=== PATIENT | female | born 1960 | race Caucasian/White ===

== ENCOUNTER 2023-08-25 07:59 | Outpatient (AMB) | payer OTHER, SELFPAY ==
--- NOTE | 2023-08-25 08:20 | MHC.OFFVIS ---
Intake Vital Signs 08/25/23 08:23 Height 5 ft 6.5 in Weight 149 lb 14.629 oz BMI 23.8 BP 132/70 Blood Pressure Location Lt brachial Position Sitting Pulse 54 Pulse Source Pulse Oximeter Pulse Oximetry (%) 98 Oxygen Delivery Method Room Air Intake Visit Reasons: COPD Billing Manager Required: No Allergies sulfamethoxazole [From Bactrim] Allergy (Mild, Unverified 08/25/23 08:25) FLUSHING/FEVER trimethoprim [From Bactrim] Allergy (Mild, Unverified 08/25/23 08:25) FLUSHING/FEVER HPI HPI Comments History of Present Illness Details The patient is here for pulmonary evaluation. The patient is a 64 year woman with a known history of bicuspid valve ultimately underwent a cardiac catheterization back in December 2021 and required an aortic valve replacement. Prior to the surgery the patient was complaining of shortness of breath specially with activity going up a flight of stairs or 6 slight incline. It is felt that mainly due to the aortic valve. However, after the valve was fixed she continued to have ongoing symptoms of dyspnea. The patient was placed on Spiriva. She did undergo pulmonary function studies at [facility] which are personally reviewed with her. The patient appears to have mild to moderate obstruction consistent with COPD and also has evidence of air trapping in a moderate diffusion impairment. She has chronic anemia in addition to having her surgery for her aortic valve. All these are contributing to her symptoms of dyspnea. She does have some wheezing on examination will go ahead and optimize her respiratory medications at this time. The patient will also benefit from pulmonary rehabilitation. She is working at this time. Therefore she can looking into underlying pulmonary programs. The patient will stop Spiriva I will start Anoro. She will continue this until she is evaluated in several months. If the patient has any issues prior to the next visit she will call for an earlier assessment [facility] Medical History (Updated 08/25/23 @ 09:03 by Francisco Rojo MD) Dyspnea COPD (chronic obstructive pulmonary disease) Social History Patient Tobacco Use Status: Former Tobacco user Tobacco use type: Cigarette Years Smoked: 42 Years Review of Systems Const Denies fever(s) Eyes Reports no additional complaints ENT Denies nasal congestion Card Denies chest pain and Reports dyspnea on exertion Resp Reports dyspnea on exertion and Reports wheezing GI Reports no additional complaints Musc Reports no additional complaints Allan/Lymph Denies lymphadenopathy Aller/Immun Reports wheezing Physical Exam Vital Signs: Last Vital Signs Pulse 54 08/25/23 08:23 BP 132/70 08/25/23 08:23 Pulse Ox 98 08/25/23 08:23 Oxygen Delivery Method Room Air 08/25/23 08:23 BMI result Body Mass Index 23.8 Const General: comfortable HEENT Head: Yes normocephalic Neck Neck: Yes supple Chest Chest palpation & inspection: normal inspection of the chest Resp Effort & Inspection: normal respiratory effort and prolonged expiratory phase Auscultation: wheezes and diminished lung sounds Cardio Heart sounds: S1 normal heart sound present and S2 normal heart sound present GI Palpation (GI): Soft to palpation Skin General skin exam: no rashes or lesions noted Extrem General: Yes no clubbing, cyanosis or edema Immunizations pneumoc 20-monty conj-dip cr(PF) 0.5 mL IM syringe Performing Provider: Francisco Rojo MD Performing Location: [facility] Administered by: Drea Fleming LPN on 08/25/23 08:58 Dose Route Admin Location Dispensed Lot Number Expiration Date NDC Classification Case Manager 0.5 mL IM Left Deltoid 0.5 mL [id number] 03/23/24 [id number] [employer] VIS Given Date VIS Provided VIS Publication Date 08/25/23 Single Vaccine 21 Eligibility Eligibility Date Funding Source Not [facility] Eligible 08/25/23 Private Results Reviewed Results Reviewed: Personally reviewed her CT scan of the chest from [facility] demonstrating tune-ow-[place] emphysema in addition to that does have the post cardiac surgery changes. She does have some atelectasis at the base. Slight evidence of chronic bronchitis. Read as a rads 2. Assessment & Plan Assessment & Plan (1) COPD (chronic obstructive pulmonary disease): Comment: mild to moderate FEV1 75% predicted Code(s): J44.9 - Chronic obstructive pulmonary disease, unspecified Qualifiers: COPD type: emphysema Emphysema type: centrilobular Qualified Code(s): J43.2 - Centrilobular emphysema (2) Dyspnea: Comment: multifactorial Code(s): R06.00 - Dyspnea, unspecified Qualifiers: Dyspnea type: dyspnea on exertion Qualified Code(s): R06.09 - Other forms of dyspnea Plan stop Spiriva start Anoro JENNIFER as needed on line pulmonary rehab monitor [place] [facility] [place]4 [place] Orders: Orders Pneumococcal 20 Immunization Today Z23 - Encounter for immunization Medications: New umeclidinium-vilanterol 62.5-25 mcg/actuation (Anoro Ellipta) 1 inh inhalation DAILY 30 days 60 ea 11RF J44.89 - Other specified chronic obstructive pulmonary disease Coding Level of Care Code New Pt Level 4 (47433) Diagnoses Centrilobular emphysema J43.2 COPD type: emphysema Emphysema type: centrilobular Dyspnea on exertion R06.09 Dyspnea type: dyspnea on exertion Time Spent (min) 37
[2023-08-25 08:23] VITALS: BP 132/70; PULSE 54; O2SAT 98; BMI 23.8
== END 2023-08-25 08:58 | disposition home or self-care (01) ==
PROVIDERS: PCP Internal Medicine; Referring Provider Student in an Organized Health Care Education/Training Program; Visit Provider Hospitalist
DX: J43.2 Centrilobular emphysema (principal); R06.09 Other forms of dyspnea; Z23 Encounter for immunization
CPT/HCPCS: 99204

== ENCOUNTER → 2023-08-25 07:59 | Outpatient (BNVA) | payer OTHER, SELFPAY | PROVIDERS: PCP Internal Medicine; Referring Provider Student in an Organized Health Care Education/Training Program; Visit Provider Hospitalist | DX: J43.2 Centrilobular emphysema (principal); R06.09 Other forms of dyspnea; Z23 Encounter for immunization | CPT/HCPCS: 90471; 90677 ==

== ENCOUNTER 2023-12-21 09:28 | Outpatient (AMB) | payer OTHER, SELFPAY ==
[2023-12-21 09:31] VITALS: BP 130/68; PULSE 55; O2SAT 99; BMI 23.3
--- NOTE | 2023-12-21 09:31 | A.OFFVIS_ITS ---
Vital Signs 12/21/23 09:31 Height 5 ft 6.5 in Weight 146 lb 9.718 oz BMI 23.3 BP 130/68 Blood Pressure Location Lt brachial Position Sitting Pulse 55 Pulse Source Pulse Oximeter Pulse Oximetry (%) 99 Oxygen Delivery Method Room Air Intake Visit Reasons: emphysema Brim Edge Trimmer Required: No Bottom Hoop Driver: Bottom Hoop Driver offered & declined Allergies sulfamethoxazole [From Bactrim] Allergy (Mild, Unverified 12/21/23 09:35) FLUSHING/FEVER trimethoprim [From Bactrim] Allergy (Mild, Unverified 12/21/23 09:35) FLUSHING/FEVER Medication List - Last Reconciled 12/21/23 by Zaynab Johnson LPN atorvastatin 80 mg PO DAILY cyanocobalamin (vitamin B-12) mcg IM metoprolol succinate ER 25 mg PO DAILY trazodone 50 mg PO BEDTIME umeclidinium-vilanterol 62.5-25 mcg/actuation (Anoro Ellipta) 1 inh inhalation DAILY 30 days HPI Comments Details: The patient is a 63 year woman with a known history of bicuspid valve ultimately underwent a cardiac catheterization back in December 2021 and required an aortic valve replacement. Prior to the surgery the patient was complaining of shortness of breath specially with activity going up a flight of stairs or 6 slight incline. It is felt that mainly due to the aortic valve. However, after the valve was fixed she continued to have ongoing symptoms of dyspnea. The patient was placed on Spiriva. She did undergo pulmonary function studies at [facility] which are personally reviewed with her. The patient appears to have mild to moderate obstruction consistent with COPD and also has evidence of air trapping in a moderate diffusion impairment. She has chronic anemia in addition to having her surgery for her aortic valve. All these are contributing to her symptoms of dyspnea. She does have some wheezing on examination will go ahead and optimize her respiratory medications at this time. The patient will also benefit from pulmonary rehabilitation. She is working at this time. Therefore she can looking into underlying pulmonary programs. The patient will stop Spiriva I will start Anoro. She will continue this until she is evaluated in several months. If the patient has any issues prior to the next visit she will call for an earlier assessment. 12/21/2023 the patient is here for a pulmonary follow-up visit. Overall she has been doing well. Denies any shortness of breath or cough. She has been staying active walking regularly. The patient had been using the Anoro inhaler. He has been affecting beneficial. She has not had any exacerbations. The patient did have a CT scan of the chest on October 2023 [facility] which was personally by me. She does have stable pulmonary nodules. She has mild to moderate emphysema also noted. She does have the postoperative changes after aortic valve. Some calcifications of the coronary arteries but otherwise pretty stable. She is going to continue getting the lung cancer screening program CT scans. Otherwise will follow-up in 1 year's time. [facility] Medical History (Updated 12/21/23 @ 12:35 by Francisco Rojo MD) Pulmonary nodules Dyspnea COPD (chronic obstructive pulmonary disease) Social History (Updated 08/25/23 @ 08:27 by KLAA Eckert) Patient Tobacco Use Status: Former Tobacco user Tobacco use type: Cigarette Years Smoked: 42 Years Review of Systems Const Denies fever(s) Eyes Reports no additional complaints ENT Denies nasal congestion Card Denies chest pain and Reports dyspnea on exertion Resp Reports dyspnea on exertion and Reports wheezing GI Reports no additional complaints Musc Reports no additional complaints Allan/Lymph Denies lymphadenopathy Aller/Immun Reports wheezing Physical Exam Vital Signs: Last Vital Signs Pulse 55 12/21/23 09:31 BP 130/68 12/21/23 09:31 Pulse Ox 99 12/21/23 09:31 Oxygen Delivery Method Room Air 12/21/23 09:31 BMI result Body Mass Index 23.3 Const General: comfortable HEENT Head: Yes normocephalic Neck Neck: Yes supple Chest Chest palpation & inspection: normal inspection of the chest Resp Effort & Inspection: normal respiratory effort Auscultation: clear to auscultation bilaterally and no wheezes Cardio Heart sounds: S1 normal heart sound present and S2 normal heart sound present GI Palpation (GI): Soft to palpation Skin General skin exam: no rashes or lesions noted Extrem General: Yes no clubbing, cyanosis or edema Assessment & Plan Assessment & Plan (1) COPD (chronic obstructive pulmonary disease): Comment: mild to moderate FEV1 75% predicted Code(s): J44.9 - Chronic obstructive pulmonary disease, unspecified Category: Medical Qualifiers: COPD type: emphysema Emphysema type: centrilobular Qualified Code(s): J43.2 - Centrilobular emphysema (2) Dyspnea: Comment: multifactorial Code(s): R06.00 - Dyspnea, unspecified Category: Medical Qualifiers: Dyspnea type: dyspnea on exertion Qualified Code(s): R06.09 - Other forms of dyspnea (3) Pulmonary nodules: Code(s): R91.8 - Other nonspecific abnormal finding of lung field Category: Medical Plan continue Anoro JENNIFER as needed on line pulmonary rehab LDCT [place] [facility] [place] RADS 2 , nexr 10/2024 F/U 12 months Coding Level of Care Code Est Pt Level 4 (38750) Diagnoses Centrilobular emphysema J43.2 COPD type: emphysema Emphysema type: centrilobular Dyspnea on exertion R06.09 Dyspnea type: dyspnea on exertion Pulmonary nodules R91.8 Time Spent (min) 17
== END 2023-12-21 09:48 | disposition home or self-care (01) ==
PROVIDERS: PCP Internal Medicine; Visit Provider Hospitalist
DX: J43.2 Centrilobular emphysema (principal); R06.09 Other forms of dyspnea; R91.8 Other nonspecific abnormal finding of lung field
CPT/HCPCS: 99214

== ENCOUNTER → 2023-12-21 09:28 | Outpatient (BNVA) | payer OTHER, SELFPAY | PROVIDERS: PCP Internal Medicine; Visit Provider Hospitalist ==

== ENCOUNTER 2024-11-22 08:03 | Outpatient (AMB) | payer OTHER, SELFPAY ==
--- OUTSIDE RECORDS SUMMARY | 2024-11-22 08:13 | XMS_ITS | Data Portability ---
Author Organization [facility], Main Office Address [address] [place] [id number] Care Team Providers Care Engraver Hand Soft Metals Name Role Phone RAF CAMPA Referring Provider JOSSIE BATRES Superintendent Horticulture SUSIE HUGHES Pharmacy Informaticist EKATERINA NOWAK Hand Surgeon LANDON CONDE Cardiac Surgeon BHAVANA GASPAR Superintendent Horticulture [phone] SAMY SCHWAB Primary Care Provider Assessment No assessment recorded. Plan of Treatment Reminders Order Date Submit Date Provider Last Modified By Organization Details Last Modified Time Details Appointments None record ed. Lab CBC w/ auto diff 2024 025 MARIZA [facility] (Centralized Electronic Ordering - All Locations), Patient Can Go To The Location Of Their Choice, [id number] 06:08:37 pap, IG + HPV, cervic al 2024 025 [email or web address] [facility], [address], [place], [address], 09:18:10 ALT (bianka caldera), serum or plasma 2024 025 MARIZA [facility] (Centralized Electronic Ordering - All Locations), Patient Can Go To The Location Of Their Choice, [id number] 06:08:38 lipid panel, serum 2024 025 MARIZA [facility] (Centralized Electronic Ordering - All Locations), Patient Can Go To The Location Of Their Choice, 5 06:08:38 vitami n B12, serum 2024 025 MARIZA [facility] (Centralized Electronic Ordering - All Locations), Patient Can Go To The Location Of Their Choice, 5 06:08:39 BMP, serum or plasma 2023 024 MARIZA [facility], [address], [place], [address], 4 06:08:25 TSH, ultra- sensit ganesh, serum 2023 024 MARIZA [facility], [address], [place], [address], 4 06:08:25 CBC w/ auto diff 2023 024 MARIZA [facility] (Centralized Electronic Ordering - All Locations), Patient Can Go To The Location Of Their Choice, 4 09:37:42 vitami n B12, serum 2023 024 MARIZA [facility] (Centralized Electronic Ordering - All Locations), Patient Can Go To The Location Of Their Choice, 4 06:08:26 vitami n B12, serum 2022 023 MARIZA Not available 3 22:23:56 folate , serum 2022 023 MARIZA Not available 3 22:23:58 ferrit in, serum or plasma 2022 023 MARIZA Not available 3 22:23:57 retic count, blood 2022 023 MARIZA Not available 3 21:02:12 CBC w/ auto diff 2022 023 MARIZA Not available 3 21:02:11 iron + total iron-b inding capaci ty (TIBC) , serum 2022 023 MARIZA Not available 3 22:12:17 intrin sic factor blocki ng Ab, serum 2022 023 MARIZA Not available 3 14:06:44 Referral pulmon etelvina diseas e specia list referr al - shortn ess of breath , hx of smokin g 2022 023 william Rojo, [address] [place] [address] [place], [address], 3 15:57:17 pulmon etelvina diseas e specia list referr al - dyspne a with exerti on evalua te 2022 023 william [facility]monary, [address] [place] [address] Rd, SAD[place], [address], 3 15:56:52 Procedures None record ed. Surgeries None record ed. Imaging LDCT, chest, for lung cancer screen ing - *LDCT Lung Cancer Screen ing Progra m Annual Order* The jarocho t does not have lung cancer or signs of lung cancer at this time. Jarocho t has not had a chest CT in the last 12 months . *SHARE D DECISI ON MAKING *I have discus sed the benefi ts and risks of lung cancer screen ing in compli ance with [facility] shared decisi on making guidel kwame includ ing early detect ion, radiat ion exposu re, false negati ve rates, false positi ve rates, over-d iagnos is, incide ntal findin gs, impact of comorb iditie s and the abilit y or willin gness to underg o diagno sis and treatm ent if someth ing concer jalil is found. I have review ed with the patimague t the import ance of abstin ence if a former smoker , and import ance of smokin g cessat ion if a curren t smoker . I have furnis hed the patimague t with inform ation and resour melisa availa ble to quit smokin g if approp riate. 2024 025 ATHENAFAX [facility] L[facility], [address] [place] [address] [place], [address], 5 08:57:27 PFT, comple te 2022 023 william [facility] (P[facility] Lab), [address] [place], [address], 3 15:48:26 XR, chest, 2 view - Cough, fatigu e, ? pneumo neelam. 2022 023 MARIZA Not available 3 16:41:02 MAMMO, screen ing, digita l, bilate ral - due for routin e mammog terry 2022 023 MARIZA Not available 3 17:13:55 Medication Orders albute rol sulfat e HFA 90 mcg/ac tuatio n aeroso l inhale r 2024 025 MARIZA [facility], [address] [place], [address], 5 14:25:18 cyanoc obalam in (vit B-12) 1,000 mcg/mL inject ion soluti on 2023 024 [email or web address] [facility], [address] [place], [address], 5 14:10:50 cyanoc obalam in (vit B-12) 1,000 mcg/mL inject ion soluti on 2022 023 [email or web address] [facility], [address] [place], [address], 4 08:18:35 Zithro max Z-Bhanu 250 mg tablet 2022 023 [email or web address] [facility], [address] [place] [address], [address], 3 08:17:34 predni sone 20 mg tablet 2022 023 [facility], [address] [place], [address], 08:17:49 albute rol sulfat e HFA 90 mcg/ac tuatio n aeroso l inhale r 2022 023 [email or web address] [facility], [address] [place], [address], 08:18:14 Patient TargetsNo targets recorded. Patient Instructions Encounter Date Encounter Id Patient Instructions Last Modified By Organization Details Last Modified Time 12/18/2022 [id number] learning about breast cancer screening [email or web address] Not available 12/18/2022 14:52:28 high blood pressure: care instructions [email or web address] Not available 12/18/2022 14:46:47 learning about high blood pressure [email or web address] Not available 12/18/2022 14:46:47 12/24/2023 [id number] well visit, women 50 to 65: care instructions Not available 12/24/2023 08:36:39 medical record request* [email or web address] Not available 12/24/2023 14:21:06 chronic obstructive pulmonary disease (COPD): care instructions Not available 12/24/2023 08:36:40 10/25/2024 [id number] chronic obstructive pulmonary disease (COPD): care instructions Not available 10/25/2024 14:25:17 Reason for Referral Cashier Assistant Referral for Dyspnea on exertion shortness of breath, hx of smoking Referring Physician: Gogo Denis, Family Medicine, Encounter Date: 12/18/2022 Cashier Assistant Referral for Dyspnea on exertion dyspnea with exertion evaluate Referring Physician: Gogo Denis, Family Medicine, Encounter Date: 12/18/2022 Results Created Date Observation Date Name Description Value Unit Range Abnormal Flag Note LastModifiedBy Organization Detail LastModifiedTime 06/18/2006/18/2023 COMPL ETE CBC WITH DIFF WBC 4.1 K/mm3 (4.0-1 1.0) Not Available [facility] (Centralized Electronic Ordering - All Locations) Patient Can Go To The Location Of Their Choice, 06/18/2023 21:02:11 06/18/2006/18/2023 COMPL ETE CBC WITH DIFF RBC 2.96 M/mm3 (4.20- 5.40) low Not Available [facility] (Centralized Electronic Ordering - All Locations) Patient Can Go To The Location Of Their Choice, 06/18/2023 21:02:11 06/18/2006/18/2023 COMPL ETE CBC WITH DIFF HGB 10.6 gm/dL (11.7- 15.5) low Not Available [facility] ([facility]ized Electronic Ordering - All Locations) Patient Can Go To The Location Of Their Choice, 06/18/2023 21:02:11 06/18/2006/18/2023 COMPL ETE CBC WITH DIFF HCT 32.7 % (35.7- 45.8) low Not Available [facility] ([facility] Ordering - All Locations) Patient Can Go To The Location Of Their Choice, 06/18/2023 21:02:11 06/18/2006/18/2023 COMPL ETE CBC WITH DIFF MCV 110.5 fL (80.0- 100.0) high Not Available [facility] ([facility]ized [facility] Ordering - All Locations) Patient Can Go To The Location Of Their Choice, 06/18/2023 21:02:11 06/18/2006/18/2023 COMPL ETE CBC WITH DIFF MCH 35.8 pg (27.0- 34.0) high Not Available [facility] ([facility] Ordering - All Locations) Patient Can Go To The Location Of Their Choice, 06/18/2023 21:02:11 06/18/2006/18/2023 COMPL ETE CBC WITH DIFF MCHC 32.4 g/dL (33.0- 37.0) low Not Available [facility] ([facility] Ordering - All Locations) Patient Can Go To The Location Of Their Choice, 06/18/2023 21:02:11 06/18/2006/18/2023 COMPL ETE CBC WITH DIFF plt 127 K/mm3 (150-4 60) low Not Available [facility] ([facility] Ordering - All Locations) Patient Can Go To The Location Of Their Choice, 06/18/2023 21:02:11 06/18/2006/18/2023 COMPL ETE CBC WITH DIFF RDW-SD 49.6 fL (<47.0 ) high Not Available [facility] ([facility] Ordering - All Locations) Patient Can Go To The Location Of Their Choice, 06/18/2023 21:02:11 06/18/2006/18/2023 COMPL ETE CBC WITH DIFF MPV 10.7 fL (9.4-1 2.4) Not Available [facility] ([facility] Ordering - All Locations) Patient Can Go To The Location Of Their Choice, 06/18/2023 21:02:11 06/18/2006/18/2023 COMPL ETE CBC WITH DIFF automated NRBC 0.0 #/100 _WBC' s Not Available [facility] ([facility] Ordering - All Locations) Patient Can Go To The Location Of Their Choice, 06/18/2023 21:02:11 06/18/2006/18/2023 COMPL ETE CBC WITH DIFF abs. NRBC 0.0 K/mm3 Not Available [facility] ([facility] Ordering - All Locations) Patient Can Go To The Location Of Their Choice, 06/18/2023 21:02:11 06/18/2006/18/2023 COMPL ETE CBC WITH DIFF neut # 1.8 K/mm3 (1.3-7 .0) Not Available [facility] ([facility] Ordering - All Locations) Patient Can Go To The Location Of Their Choice, 06/18/2023 21:02:11 06/18/2006/18/2023 COMPL ETE CBC WITH DIFF lymph # 1.9 K/mm3 (0.8-3 .1) Not Available [facility] ([facility] Ordering - All Locations) Patient Can Go To The Location Of Their Choice, 06/18/2023 21:02:11 06/18/2006/18/2023 COMPL ETE CBC WITH DIFF mono# 0.2 K/mm3 (0.4-0 .9) low Not Available [facility] ([facility] Order[facility] - All Locations) Patient Can Go To The Location Of Their Choice, 06/18/2023 21:02:11 06/18/2006/18/2023 COMPL ETE CBC WITH DIFF eo # 0.1 K/mm3 (0.0-0 .4) Not Available [facility] ([facility] Ordering - All Locations) Patient Can Go To The Location Of Their Choice, 06/18/2023 21:02:11 06/18/2006/18/2023 COMPL ETE CBC WITH DIFF baso # 0.0 K/mm3 (0.0-0 .1) Not Available [facility] ([facility] Order[facility] - All Locations) Patient Can Go To The Location Of Their Choice, 06/18/2023 21:02:11 06/18/2006/18/2023 COMPL ETE CBC WITH DIFF abs. imm gran 0.0 K/mm3 Not Available [facility] ([facility] Locations) Patient Can Go To The Location Of Their Choice, 06/18/2023 21:02:11 06/18/2006/18/2023 COMPL ETE CBC WITH DIFF neut 44.4 % (44-76 ) Not Available [facility] ([facility] Ordering - All Locations) Patient Can Go To The Location Of Their Choice, 06/18/2023 21:02:11 06/18/2006/18/2023 COMPL ETE CBC WITH DIFF lymph 46.3 % (15-43 ) high Not Available [facility] ([facility] Order[facility] - All Locations) Patient Can Go To The Location Of Their Choice, 06/18/2023 21:02:11 06/18/2006/18/2023 COMPL ETE CBC WITH DIFF monocyte 5.7 % (4.5-1 0.5) Not Available [facility] ([facility] Ordering - All Locations) Patient Can Go To The Location Of Their Choice, 06/18/2023 21:02:11 06/18/2006/18/2023 COMPL ETE CBC WITH DIFF eo 2.7 % (0-6) Not Available [facility] ([facility] Ordering - All Locations) Patient Can Go To The Location Of Their Choice, 06/18/2023 21:02:11 06/18/2006/18/2023 COMPL ETE CBC WITH DIFF baso 0.7 % (0-2) Not Available [facility] ([facility] Ordering - All Locations) Patient Can Go To The Location Of Their Choice, 06/18/2023 21:02:11 06/18/2006/18/2023 COMPL ETE CBC WITH DIFF imm gran 0.2 % Not Available [facility] ([facility] Ordering - All Locations) Patient Can Go To The Location Of Their Choice, 06/18/2023 21:02:11 06/18/2006/18/2023 RETIC ULOCY TE COUNT retic % 2.1 % (0.9-2 .1) Not Available [facility] ([facility] Ordering - All Locations) Patient Can Go To The Location Of Their Choice, 06/18/2023 21:02:12 06/18/2006/18/2023 RETIC ULOCY TE COUNT reticulocyte count, corrected 1.5 % (0.9-2 .1) Not Available [facility] ([facility] Ordering - All Locations) Patient Can Go To The Location Of Their Choice, 06/18/2023 21:02:12 06/18/2006/18/2023 RETIC ULOCY TE COUNT reticulocyte production index 1.0 % (1.0-2 .0) Not Available [facility] ([facility] Ordering - All Locations) Patient Can Go To The Location Of Their Choice, 06/18/2023 21:02:12 06/18/2006/18/2023 IRON & TIBC iron 102 mcg/d L (30-16 0) Not Available [facility] ([facility] Order[facility] - All Locations) Patient Can Go To The Location Of Their Choice, 06/18/2023 22:12:17 06/18/2006/18/2023 IRON & TIBC unsaturated iron binding capac 174 mcg/d L (110-3 70) Not Available [facility] ([facility] Ordering - All Locations) Patient Can Go To The Location Of Their Choice, 06/18/2023 22:12:17 06/18/2006/18/2023 IRON & TIBC est T. iron bind capacity 276 mcg/d L (140-5 30) Not Available [facility] ([facility] Ordering - All Locations) Patient Can Go To The Location Of Their Choice, 06/18/2023 22:12:17 06/18/2006/18/2023 IRON & TIBC % iron saturation 37 % (20-55 ) Not Available [facility] ([facility] Ordering - All Locations) Patient Can Go To The Location Of Their Choice, 06/18/2023 22:12:17 06/18/2006/18/2023 VITAM IN B12 vitamin B12 497 pg/mL (232-1 245) Not Available [facility] ([facility] Ordering - All Locations) Patient Can Go To The Location Of Their Choice, 06/18/2023 22:23:56 06/18/2006/18/2023 ISHAAN TIN ferritin 44 NG/mL (14-28 3) Not Available [facility] ([facility] Order[facility] - All Locations) Patient Can Go To The Location Of Their Choice, 06/18/2023 22:23:57 06/18/2006/18/2023 FOLIC ACID folic acid 11.3 NG/mL (4.8-3 7.3) Not Available [facility] ([facility] Order[facility] - All Locations) Patient Can Go To The Location Of Their Choice, 06/18/2023 22:23:58 06/18/2006/21/2023 INTRI NSIC FACTO R BLOCK ING AB intrinsic factor blocking Ab 1.1 Refer ence range : 0.0 to 1.1 Unit: AU/mL Test perfo rmed at [facility] Alivia dorsey , [address] [place], [place] [address] [place] [address] Not Available [facility] ([facility] Ordering - All Locations) Patient Can Go To The Location Of Their Choice, 06/21/2023 14:06:44 12/24/19 24 12/25/2023 BASIC METAB OLIC PANEL (8) glucose 98 mg/dL 70-99 Not Available [facility] ([facility]) [address] [facility], [place], [address], 12/25/2023 06:08:25 12/24/19 24 12/25/2023 BASIC METAB OLIC PANEL (8) BUN 15 mg/dL 8-27 Not Available [facility] ([facility]) [address] [place], [address], 12/25/2023 06:08:25 12/24/1912/25/2023 BASIC METAB OLIC PANEL (8) creatinine 0.81 mg/dL 0.57-1 .00 Not Available [facility] ([facility]) [address] [place], [address], 12/25/2023 06:08:25 12/24/19 24 12/25/2023 BASIC METAB OLIC PANEL (8) eGFR 82 mL/mi n/1.7 3 >59 Not Available [facility] ([facility]) [address] [place], [address], 12/25/2023 06:08:25 12/24/19 24 12/25/2023 BASIC METAB OLIC PANEL (8) BUN/creatini ne ratio 19 12-28 Not Available [facility] ([facility]) [address] [facility] [place], [address], 12/25/2023 06:08:25 12/24/1912/25/2023 BASIC METAB OLIC PANEL (8) sodium 142 mmol/ L 134-14 4 Not Available [facility] ([facility]) [address] [facility] [place], [address], 12/25/2023 06:08:25 12/24/1912/25/2023 BASIC METAB OLIC PANEL (8) potassium 4.5 mmol/ L 3.5-5. 2 Not Available [facility] ([facility]) [address] [place], [address], 12/25/2023 06:08:25 12/24/19 24 12/25/2023 BASIC METAB OLIC PANEL (8) chloride 106 mmol/ L 96-106 Not Available [facility] ([facility]) [address] [facility] [place], [address], 12/25/2023 06:08:25 12/24/19 24 12/25/2023 BASIC METAB OLIC PANEL (8) carbon dioxide, total 23 mmol/ L 20-29 Not Available [facility] ([facility]) [address] [place], [address], 12/25/2023 06:08:25 12/24/19 24 12/25/2023 BASIC METAB OLIC PANEL (8) calcium 8.9 mg/dL 8.7-10 .3 Not Available [facility] ([facility]) [address] [facility], [place], [address], 12/25/2023 06:08:25 12/24/19 24 12/25/2023 TSH RFX ON ABNOR MAL TO FREE T4 TSH 1.020 uIU/m L 0.450- 4.500 Not Available [facility] ([facility]) [address] [facility], [place], [address], 12/25/2023 06:08:25 12/24/19 24 12/26/2023 VITAM IN B12 vitamin B12 520 pg/mL 232-12 45 Not Available [facility] ([facility]) [address] [place], [address], 12/26/2023 06:08:26 12/24/19 24 12/25/2023 JON EN AUTHO RIZAT ION written authorizatio n Jude Feliciano en Autho rizat ion Recei aidan. Autho rizat ion recei aidan from SHRUTHI Wiley for Link Reque st on 12-24 Logge d by Emile Méndez Not Available [facility] ([facility]) [address] [place], [address], 12/26/2023 06:08:27 10/27/19 25 10/27/2024 CBC WITH DIFFE RENTI AL/PL ATELE T WBC 4.0 x10e3 /uL 3.4-10 .8 normal Not Available [facility] ([facility]) [address] [facility] [place], [address], 10/27/2024 06:08:37 10/27/19 25 10/27/2024 CBC WITH DIFFE RENTI AL/PL ATELE T RBC 3.43 x10e6 /uL 3.77-5 .28 below low normal Not Available [facility] ([facility]) [address] [facility], [place], [address], 10/27/2024 06:08:37 10/27/19 25 10/27/2024 CBC WITH DIFFE RENTI AL/PL ATELE T hemoglobin 12.1 g/dL 11.1-1 5.9 normal Not Available [facility] ([facility]) [address] [facility], [place], [address], 10/27/2024 06:08:37 10/27/19 25 10/27/2024 CBC WITH DIFFE RENTI AL/PL ATELE T hematocrit 36.1 % 34.0-4 6.6 normal Not Available [facility] ([facility]) [address] [place], [address], 10/27/2024 06:08:37 10/27/19 25 10/27/2024 CBC WITH DIFFE RENTI AL/PL ATELE T MCV 105 fL 79-97 above high normal Not Available [facility] ([facility]) [address] [place], [address], 10/27/2024 06:08:37 10/27/19 25 10/27/2024 CBC WITH DIFFE RENTI AL/PL ATELE T MCH 35.3 pg 26.6-3 3.0 above high normal Not Available [facility] ([facility]) [address] [place], [address], 10/27/2024 06:08:37 10/27/19 25 10/27/2024 CBC WITH DIFFE RENTI AL/PL ATELE T MCHC 33.5 g/dL 31.5-3 5.7 normal Not Available [facility] ([facility]) [address] [facility], [place], [address], 10/27/2024 06:08:37 10/27/19 25 10/27/2024 CBC WITH DIFFE RENTI AL/PL ATELE T RDW 11.5 % 11.7-1 5.4 below low normal Not Available [facility] ([facility]) [address] [facility], [place], [address], 10/27/2024 06:08:37 10/27/19 25 10/27/2024 CBC WITH DIFFE RENTI AL/PL ATELE T platelets 137 x10e3 /uL 150-45 0 below low normal Not Available [facility] ([facility]) [address] [facility], [place], [address], 10/27/2024 06:08:37 10/27/19 25 10/27/2024 CBC WITH DIFFE RENTI AL/PL ATELE T neutrophils 41 % not estab. normal Not Available [facility] ([facility]) [address] [facility], [place], [address], 10/27/2024 06:08:37 10/27/19 25 10/27/2024 CBC WITH DIFFE RENTI AL/PL ATELE T lymphs 47 % not estab. normal Not Available [facility] ([facility]) [address] [facility], [place], [address], 10/27/2024 06:08:37 10/27/19 25 10/27/2024 CBC WITH DIFFE RENTI AL/PL ATELE T monocytes 8 % not estab. normal Not Available [facility] ([facility]) [address] [facility], [place], [address], 10/27/2024 06:08:37 10/27/19 25 10/27/2024 CBC WITH DIFFE RENTI AL/PL ATELE T eos 3 % not estab. normal Not Available [facility] ([facility]) [address] [place], [address], 10/27/2024 06:08:37 10/27/19 25 10/27/2024 CBC WITH DIFFE RENTI AL/PL ATELE T basos 1 % not estab. normal Not Available [facility] ([facility]) [address] [facility], [place], [address], 10/27/2024 06:08:37 10/27/19 25 10/27/2024 CBC WITH DIFFE RENTI AL/PL ATELE T immature cells CUT OFF SAW OPERATOR PIPE BLANKS Not Available [facility] ([facility]) [address] [facility], [place], [address], 10/27/2024 06:08:37 10/27/19 25 10/27/2024 CBC WITH DIFFE RENTI AL/PL ATELE T neutrophils (absolute) 1.7 x10e3 /uL 1.4-7. 0 normal Not Available [facility] ([facility]) [address] [place], [address], 10/27/2024 06:08:37 10/27/19 25 10/27/2024 CBC WITH DIFFE RENTI AL/PL ATELE T lymphs (absolute) 1.9 x10e3 /uL 0.7-3. 1 normal Not Available [facility] ([facility]) [address] [place], [address], 10/27/2024 06:08:37 10/27/19 25 10/27/2024 CBC WITH DIFFE RENTI AL/PL ATELE T monocytes(ab solute) 0.3 x10e3 /uL 0.1-0. 9 normal Not Available [facility] ([facility]) [address] [place], [address], 10/27/2024 06:08:37 10/27/19 25 10/27/2024 CBC WITH DIFFE RENTI AL/PL ATELE T eos (absolute) 0.1 x10e3 /uL 0.0-0. 4 normal Not Available [facility] ([facility]) [address] [facility], [place], [address], 10/27/2024 06:08:37 10/27/19 25 10/27/2024 CBC WITH DIFFE RENTI AL/PL ATELE T baso (absolute) 0.0 x10e3 /uL 0.0-0. 2 normal Not Available [facility] ([facility]) [address] [facility], [place], [address], 10/27/2024 06:08:37 10/27/19 25 10/27/2024 CBC WITH DIFFE RENTI AL/PL ATELE T immature granulocytes 0 % not estab. Not Available [facility] ([facility]) [address] [facility], [place], [address], 10/27/2024 06:08:37 10/27/19 25 10/27/2024 CBC WITH DIFFE RENTI AL/PL ATELE T immature grans (abs) 0.0 x10e3 /uL 0.0-0. 1 Not Available [facility] ([facility]) [address] [facility], [place], [address], 10/27/2024 06:08:37 10/27/19 25 10/27/2024 CBC WITH DIFFE RENTI AL/PL ATELE T NRBC CUT OFF SAW OPERATOR PIPE BLANKS Not Available [facility] ([facility]) [address] [facility], [place], [address], 10/27/2024 06:08:37 10/27/19 25 10/27/2024 CBC WITH DIFFE RENTI AL/PL ATELE T hematology comments: Note: Verif ied by micro yaron stevenson n. Not Available [facility] ([facility]) [address] [place], [address], 10/27/2024 06:08:37 10/27/19 25 10/27/2024 LIPID PANEL cholesterol, total 145 mg/dL 100-19 9 normal Not Available [facility] ([facility]) [address] [facility] [place], [address], 10/27/2024 06:08:38 10/27/19 25 10/27/2024 LIPID PANEL triglyceride s 105 mg/dL 0-149 normal Not Available [facility] ([facility]) [address] [facility] [place], [address], 10/27/2024 06:08:38 10/27/19 25 10/27/2024 LIPID PANEL HDL cholesterol 40 mg/dL >39 normal Not Available [facility] ([facility]) [address] [facility] [place], [address], 10/27/2024 06:08:38 10/27/19 25 10/27/2024 LIPID PANEL VLDL cholesterol curry 19 mg/dL 5-40 Not Available [facility] ([facility]) [address] [place], [address], 10/27/2024 06:08:38 10/27/19 25 10/27/2024 LIPID PANEL LDL chol calc ([facility]) 86 mg/dL 0-99 Not Available [facility] ([facility]) [address] [place], [address], 10/27/2024 06:08:38 10/27/19 25 10/27/2024 LIPID PANEL LDL calc comment: CUT OFF SAW OPERATOR PIPE BLANKS Not Available [facility] ([facility]) [address] [place], [address], 10/27/2024 06:08:38 10/27/19 25 10/27/2024 ALT (SGPT ) ALT (SGPT) 12 IU/L 0-32 normal Not Available [facility] ([facility]) [address] [place], [address], 10/27/2024 06:08:38 10/27/19 25 10/26/2024 VITAM IN B12 vitamin B12 771 pg/mL 232-12 45 normal Not Available [facility] ([facility]) [address] [place], [address], 10/27/2024 06:08:39 12/18/19 23 11/27/2022 exerc ise chall enge test (PROC ) No observ ation record ed. [email or web address] Not Available 12/17/2022 16:06:08 03/12/20 23 03/12/2023 MAMMO , scree jalil, digit al, bilat eral PROCED URE: MM Digita l Mammo Screen ing INDICA TION: Screen ing for breast cancer . No known palpab le abnorm alitie s. COMPAR CARLOS: [facility]. TECHNI QUE: Full-f ield digita l CC and MLO 3D tomosy nthesi s images of both breast s were acquir ed. Comput er-aid ed detect ion (CAD) was utiliz ed in the interp retati on of this study. DENSIT Y: The breast tissue is hetero geneou sly dense, which may obscur e masses . FINDIN GS: No suspic ious masses , suspic ious microc alcifi cation s, or areas of korina ectura l distor tion are seen in either breast to sugges t malign jeremias. IMPRES ARMIN: No mammog raphic eviden ce of malign jeremias. RECOMM ENDATI ON: Annual mammog raphic screen ing BI-RAD S: 1 (Negat ganesh) Lay letter mailed to mindimague martinez WSN: [id number] Orderi Physic jovana: Gogo De La Rosa Dictat ed By: Saundra Carter MD, I Dictat ed Date/T bradford: 5:10 pm Review ed By: Saundra Carter MD, I Signed By: Saundra Carter MD, I Signed Date/T bradford: 5:10 pm Transc ribed By: CAROLYN Transc riptio n Date/T bradford: 5:08 pm Birads : Jarocho martinez Class: Outpat ient [email or web address] [facility] (Outpt Imaging) [address] , [place], [address], 03/13/2023 15:20:34 04/10/20 23 04/10/2023 XR, chest , 2 view Chest 2 Views Fronta l and Lat Reason : cough, fatigu e, ? Pneumo neelam COMPAR CARLOS: 022 FINDIN GS: LINES AND TUBES: None. LUNGS AND PLEURA : Clear lungs. Normal pulmon etelvina vascul arity. The left costop hrenic angle is shallo w as it has been in the past. No pleura l effusi on. No pneumo thorax . HEART, MEDIAS TINUM AND TRISTON: Jarocho martinez has a prosth etic cardia c valve in place. Patimague t has had a median sterno scout. The wires are intact . Normal medias tinal and hilar contou r. BONES AND SOFT TISSUE S: No acute abnorm ality. IMPRES ARMIN: No acute abnorm ality. WSN: [id number] Orderi ng Physic jovana: Evans Calhoun Dictat ed By: Barber Claros MD Dictat ed Date/T bradford: 4:37 pm Review ed By: Barber Claros MD Signed By: Barber Claros MD Signed Date/T bradford: 4:37 pm Transc ribed By: CAROLYN Transc ribed Date/T bradford: 4:33 pm Patien t Class: Outpat ient [facility] (Outpt Imaging) [address] [facility], [place], [address], 04/18/2023 18:57:28 04/10/20 23 04/10/2023 imagi ng/katerine degroot tic resul t No observ ation record ed. [facility] [address] [place], [address], 04/18/2023 18:58:57 06/26/20 23 06/23/2023 PFT, compl ete No observ ation record ed. [facility] (Pulmonary Lab) [address] [place], [address], 06/28/2023 11:38:47 11/04/19 24 11/04/2023 CT chest ldct lung progr am CT Chest LDCT Lung Progra m Reason : Other: ; LDCT LUNG CANCER SCREEN ING CASSIEA M, PETER T SMOKER , 44 PACK YEAR HX; Clinic al Questi on(s): Other: ; Specia l Instru ctions : BOOK AT [address] [facility], [facility], [place] BOOK AFTER [address] IN THE LAST 12 MONTHS NO LUNG CA OR SIGNS AND SYMPTO MS OF LUNG CA Visit type: Annual Screen ing TECHNI QUE: Low-do se helica l CT of the chest withou t IV contra st (Adult Lung Cancer Screen ing) protoc ol was perfor med. Mattson l reform ats were obtain ed. Weight -based protoc ol using automa tic tube modula tion was used to optimi ze exposu re parame ters. CTDIvo l Body: 1.76 mGy, DLP Body: 65 mGy*cm . COMPAR CARLOS: 10/31/19 23 low-do se chest CT. FINDIN GS: LUNG NODULE S (measu red on thin axial series 4 ): RIGHT lun.2 cm solid nodule in the right lower lobe (image 151 series 4), unchan ged. No new nodule s. LEFT lung: None. OTHER FINDIN GS: Dynamometer Tuner view findin gs, lines and tubes: None. Trache a and airway s: Patent withou t eviden ce of trache al or endobr onchia l lesion . Lungs and pleura : Mild upper lobe predom inant centri lobula r emphys marie. No effusi on or pneumo thorax . Medias tinum and triston: No mass or hemato ma. No medias tinal or hilar lympha denopa thy. No esopha geal abnorm ality. Heart: Heart is normal in size. No perica rdial effusi on. No mattson ry arteri al calcif icatio ns. Aorta: Prior aortic valve replac ement and ascend ing aorta graft repair . The aorta measur es approx imatel y 2.9 x 3.0 cm at the level of the graft, and 3.6 x 3.3 cm above the graft. No surrou nding fluid collec tion. Pulmon etelvina arteri es: Normal calibe r. Chest wall soft tissue s: No acute abnorm ality. Diaphr agm: Intact . Upper abdome n: No signif icant abnorm ality. Bones: No acute abnorm ality. Prior median sterno socut. IMPRES ARMIN: 1. 0.2 cm solid nodule in the right lower lobe, unchan ged. No new nodule s. LungRa d Catego ry: 2 Benign Appear ance or Behavi or. Nodule s with a very low likeli south of becomi ng a clinic ally active cancer due to size or lack of growth . Contin ue annual screen ing with LDCT in 12 months . 2. No signif icant additi onal findin gs requir ing furthe r evalua tion. Lung-R AD Catego ry Modifi er: None. 3. Mild emphys marie. Catego rizati on based on Lung-R ADS 2021 criter ia. https: //[email or web address] /Lung- RADS/L fiordaliza-RA - 2.pdf WSN: [id number] Orderi ng Physic jovana: Abner Dawson Dictat ed By: Fabrice Calvillo MD Dictat ed Date/T bradford: 11:09 a Review ed By: Fabrice Calvillo MD Signed By: Fabrice Calvillo MD Signed Date/T bradford: 11:09 am Transc ribed By: CAROLYN Transc ribed Date/T bradford: 10:54 am Patien t Class: Outpat ient [facility] (Outpt Imaging) [address] [place], [address], 11/04/2023 12:25:01 11/04/19 24 11/04/2023 LDCT, chest , for lung cance r pradip jimenes No observ ation record ed. [email or web address] [facility] [address] [place], [address], 11/04/2023 11:36:34 12/29/19 24 03/12/2023 MAMMO , pradip jimenes, digit al, bilat eral No observ ation record ed. [email or web address] Not Available 12/28 16:09:02 Result Notes None recorded. Problems Name Problem SNOMED Code Status Onset Date Resolution Date Notes Provider Name and Address Organization Details Recorded Time Acute pharyngi tis 128306465 Completed 200803/07/2014 RECORDED 09/21/19 09 8:21AM BY FARZANA ROBERT MA, ARVINATI ON/ADDEN DUM Not Available [facility] 4 15:08:44 Acute sinusiti s 80692488 Completed 200803/07/2014 RECORDED 09/21/19 09 8:21AM BY FARZANA ROBERT MA, ARVINATI ON/ADDEN DUM Not Available [facility] 4 15:08:44 Screenin g for malignan t neoplasm of breast Completed 201203/07/2014 RECORDED 09/24/19 13 12:56PM BY LUIS GIBBONS ON/ADDEN DUM SADIA Gibbons, [facility] 6 09:54:59 Chest pain 04923125 Completed 201207/04/2016 RECORDED 07/15/20 13 12:58PM BY DARIELA NORRIS, OFFICE VISIT SADIA Gibbons, [facility] 6 09:55:08 Screenin g for malignan t neoplasm of colon Completed 201203/07/2014 RECORDED 09/24/19 13 12:55PM BY LUIS GIBBONS ON/ADDEN DUM Gogo good [facility] 6 10:26:30 Screenin g for malignan t neoplasm of colon Completed 201207/04/2016 RECORDED 07/15/20 13 12:59PM BY DARIELA NORRIS, OFFICE VISIT Gogo good [facility] 6 10:26:30 Depressi ve disorder 07015907 Completed 201207/04/2016 IMPRESSI ON: LEXAPRO IS HELPING, PT TO CONTINUE ; RECORDED 07/15/20 13 1:26PM BY GOGO Nascimento MD, OFFICE VISIT Gogo good [facility] 7 09:28:40 Depressi ve disorder 12780122 Completed 201203/07/2014 IMPRESSI ON: LONG TALK ABOUT LOSS OF BROTHER FROM SUICIDE, PT TO GET APPT WITH PSYCHIAT RY; RECORDED 01/27/20 13 10:27AM BY DARIELA NORRIS, OFFICE VISIT Gogo good [facility] 7 09:28:40 Follow-u p encounte r Completed 201207/04/2016 RECORDED 07/15/20 13 12:58PM BY DARIELA NORRIS, OFFICE VISIT SADIA Gibbons [facility] 6 09:55:24 Influenz a vaccine needed 12509902683 06 Completed 200903/07/2014 RECORDED 06/11/20 10 2:17PM BY DARIELA NORRIS, HISTORIC AL SUMMARY SADIA Gibbons [facility] 6 09:54:44 Influenz a vaccine needed 28648531730 06 Completed 201207/04/2016 RECORDED 07/15/20 13 1:06PM BY LUIS GIBBONS ON/ADDEN DUM SADIA Gibbons [facility] 6 09:54:44 Adult health examinat ion Completed 201203/07/2014 IMPRESSI ON: PAP, MAMMOA DN COLONOSC OPY PT WILL CHECK WITH EHR LIVER DOC ABOUT GETTING ZOSTAVAX DUE TO LIVER ISSUES/H EPATITIS ; RECORDED 01/27/20 13 10:18AM BY LUIS GIBBONS/ADDEN DUM Not Available [facility] 4 15:08:45 Genital herpes simplex 28179346 Completed 201207/04/2016 RECORDED 07/15/20 13 12:58PM BY DARIELA NORRIS, OFFICE VISIT Gogo good [facility] 6 10:26:33 Viral hepatiti s C 68155883 Completed 201210/19/2017 DR BATRES FOLLOWS Gogo [facility] 8 19:56:41 Inflamma tory disease of liver 746535598 Completed 201207/04/2016 IMPRESSI ON: HEPATITI S C STABLE; RECORDED 07/15/20 13 12:59PM BY DARIELA NORRIS, OFFICE VISIT Gogo good [facility] 6 10:27:16 Pure hypercho lesterol emia 005210151 Completed 201207/04/2016 IMPRESSI ON: CHECK FASTING; RECORDED 07/15/20 13 12:58PM BY DARIELA NORRIS, OFFICE VISIT Gogo good [facility] 6 10:26:23 Essentia l hyperten armin 17316465 Active 2012 SADIA Goodman [facility] 7 09:07:45 Insomnia 603618448 Active 2012 SADIA Goodman [facility] 7 09:07:56 Laborato ry procedur e performe d 070605397 Completed 201307/04/2016 RECORDED 09/08/19 14 9:34AM BY CM ARIZMENDI MA, LAB REQ Gogo good [facility] 6 10:27:09 Lateral epicondy litis 695103563 Completed 201207/04/2016 RECORDED 07/15/20 13 12:58PM BY DARIELA NORRIS, OFFICE VISIT Gogo good [facility] 6 10:27:03 Malaise and fatigue 993732197 Completed 201207/04/2016 IMPRESSI ON: EFFEXCEL LENT RESPONSE TO EFFEXOR BUT CAUSING ALOT OF INSOMNIA , LOWER TO LOWER DOSE, PT CAN INCREASE BACK TO 75MG IF SLEEP IMPROVES , FOLLOWUP 06/04; RECORDED 07/15/20 13 12:59PM BY DARIELA NORRIS, OFFICE VISIT SADIA Gibbons [facility] 6 09:55:03 Malaise and fatigue 485638168 Completed 201203/07/2014 RECORDED 01/27/20 13 10:18AM BY LUIS GIBBONS ON/ADDEN DUM SADIA Gibbons [facility] 6 09:55:03 Screenin g for malignan t neoplasm of breast Completed 201207/04/2016 RECORDED 07/15/20 13 12:58PM BY DARIELA NORRIS, OFFICE VISIT SADIA Gibbons, [facility] 6 09:54:59 Neck pain 03277331 Completed 201207/04/2016 IMPRESSI ON: RIGHT SIDED NECK AND UPPER ARM PAIN, NEW PROBLEM, SOUNDS LIKE NEUROPAT HIC PAIN, TX BELOW AND WITH MOTRIN; RECORDED 07/15/20 13 12:58PM BY DARIELA NORRIS, OFFICE VISIT Gogo good [facility] 6 10:27:25 Administ ration of bacteria l and viral vaccine Completed 201003/07/2014 RECORDED 06/12/20 11 1:33PM BY DARIELA NORRIS, OFFICE VISIT Not Available [facility] 4 15:08:46 Nondepen dent alcohol abuse in [facility] n 582613677 Active 1996 SADIA Goodman, [facility] 7 09:07:59 Shoulder joint pain 871759327 Completed 201203/07/2014 RECORDED 09/24/19 13 12:56PM BY LUIS GIBBONS ON/ADDEN DUM SADIA Gibbons [facility] 6 09:54:56 Palpitat ions 69175568 Completed 201207/04/2016 IMPRESSI ON: WELL CONTROLL ED ON TOPROL, CONTINUE AND WILL FOLWOUP WITH CARDIOLO GY IN THE SPRING AND GET STRESS ECHO; RECORDED 07/15/20 13 12:58PM BY DARIELA NORRIS, OFFICE VISIT Gogo good [facility] 6 10:26:51 Plantar fascial fibromat osis 14203370 Completed 201207/04/2016 IMPRESSI ON: SHOWED PT STRETCHE S; RECORDED 07/15/20 13 12:59PM BY DARIELA NORRIS, OFFICE VISIT Gogo good [facility] 6 10:27:19 Shoulder joint pain 617324713 Completed 201207/04/2016 IMPRESSI ON: RELATED TO NECK PAIN, OCNTINUE EXERCISE S; RECORDED 07/15/20 13 12:58PM BY DARIELA NORRIS, OFFICE VISIT SADIA Gibbons [facility] 6 09:54:56 Tobacco dependen ce syndrome 54915844 Completed 201207/04/2016 IMPRESSI ON: URGED PT TO QUIT; RECORDED 07/15/20 13 1:07PM BY DARIELA NORRIS, OFFICE VISIT Gogo good [facility] 6 10:31:40 Urinary tract infectio us disease 09533370 Completed 201203/07/2014 RECORDED 09/24/19 13 12:56PM BY DARIELA NORRIS ANNOTATI ON/ADDEN DUM Not Available [facility] 4 15:08:47 Viral hepatiti s 9271087 Completed 201207/04/2016 IMPRESSI ON: FOLLOWED BY GI DOING WELL, CHECK LFTS SINCE ON LEXAPRO; RECORDED 07/15/20 13 1:26PM BY GOGO Nascimento MD, OFFICE VISIT Gogo good [facility] 6 10:26:46 Acute pharyngi tis 807581500 Completed 200803/30/2014 RECORDED 09/21/19 09 8:21AM BY FARZANA ROBERT MA, ANNOTATI ON/ADDEN DUM Not Available [facility] 4 13:14:39 Acute sinusiti s 32436139 Completed 200803/30/2014 RECORDED 09/21/19 09 8:21AM BY FARZANA ROBERT MA, ANNOTATI ON/ADDEN DUM Not Available [facility] 4 13:14:39 Screenin g for malignan t neoplasm of breast Completed 201203/30/2014 RECORDED 09/24/19 13 12:56PM BY LUIS GIBBONS ON/ADDEN DUM SADIA Gibbons, [facility] 6 09:54:59 Screenin g for malignan t neoplasm of colon Completed 201203/30/2014 RECORDED 09/24/19 13 12:55PM BY LUIS GIBBONS ON/ADDEN DUM Gogo good, [facility] 6 10:26:30 Influenz a vaccine needed 82849106157 06 Completed 200903/30/2014 RECORDED 06/11/20 10 2:17PM BY DARIELA NORRIS, HISTORIC AL SUMMARY SADIA Gibbons, [facility] 6 09:54:44 Adult health examinat ion Completed 201203/30/2014 IMPRESSI ON: PAP, MAMMOA DN COLONOSC OPY PT WILL CHECK WITH EHR LIVER DOC ABOUT GETTING ZOSTAVAX DUE TO LIVER ISSUES/H EPATITIS ; RECORDED 01/27/20 13 10:18AM BY LUIS GIBBONS ON/ADDEN DUM Not Available [facility] 4 13:14:39 Administ ration of bacteria l and viral vaccine Completed 201003/30/2014 RECORDED 06/12/20 11 1:33PM BY DARIELA NORRIS, OFFICE VISIT Not Available [facility] 4 13:14:40 Shoulder joint pain 185185657 Completed 201203/30/2014 RECORDED 09/24/19 13 12:56PM BY LUIS GIBBONS ON/ADDEN DUM SADIA Gibbons [facility] 6 09:54:56 Urinary tract infectio us disease 53255381 Completed 201203/30/2014 RECORDED 09/24/19 13 12:56PM BY LUIS GIBBONS ON/ADDEN DUM Not Available [facility] 4 13:14:41 Acute pharyngi tis 202894787 Completed 200803/31/2014 RECORDED 09/21/19 09 8:21AM BY FARZANA ROBERT MA, ANNOTATI ON/ADDEN DUM Not Available [facility] 4 03:55:00 Acute sinusiti s 67447790 Completed 200803/31/2014 RECORDED 09/21/19 09 8:21AM BY FARZANA ROBERT MA, ANNOTATI ON/ADDEN DUM Not Available [facility] 4 03:55:00 Screenin g for malignan t neoplasm of breast Completed 201203/31/2014 RECORDED 09/24/19 13 12:56PM BY LUIS GIBBONS ON/ADDEN DUM SADIA Gibbons [facility] 6 09:54:59 Screenin g for malignan t neoplasm of colon Completed 201203/31/2014 RECORDED 09/24/19 13 12:55PM BY LUIS GIBBONS ON/ADDEN DUM Gogo good [facility] 6 10:26:30 Influenz a vaccine needed 38190521967 06 Completed 200903/31/2014 RECORDED 06/11/20 10 2:17PM BY DARIELA NORRIS, HISTORIC AL SUMMARY SADIA Gibbons [facility] 6 09:54:44 Adult health examinat ion Completed 201203/31/2014 IMPRESSI ON: PAP, MAMMOA DN COLONOSC OPY PT WILL CHECK WITH EHR LIVER DOC ABOUT GETTING ZOSTAVAX DUE TO LIVER ISSUES/H EPATITIS ; RECORDED 01/27/20 13 10:18AM BY LUIS GIBBONS ON/ADDEN DUM Not Available [facility] 4 03:55:00 Administ ration of bacteria l and viral vaccine Completed 201003/31/2014 RECORDED 06/12/20 11 1:33PM BY DARIELA NORRIS, OFFICE VISIT Not Available [facility] 4 03:55:00 Shoulder joint pain 009173169 Completed 201203/31/2014 RECORDED 09/24/19 13 12:56PM BY LUIS GIBBONS ON/ADDEN DUM SADIA Gibbons [facility] 6 09:54:56 Urinary tract infectio us disease 09799756 Completed 201203/31/2014 RECORDED 09/24/19 13 12:56PM BY LUIS GIBBONS ON/ADDEN DUM Not Available [facility] 4 03:55:00 Acquired trigger finger 1167123 Completed 07/04/2016 Gogo good [facility] 6 10:27:13 Dyspnea 677578204 Completed 201207/04/2016 IMPRESSI ON: LONGTIME SMOKER WANTS TO QUIT,W ILL GET BASELINE SPIROMET RY, NO INHALERS TO DATE; RECORDED 07/15/20 13 12:59PM BY DARIELA NORRIS, OFFICE VISIT Gogo good [facility] 6 10:26:20 Major depressi ve disorder 536074085 Completed 07/04/2016 Gogo good [facility] 6 10:26:38 Anemia 507847699 Completed 07/04/2016 Gogo good [facility] 6 10:26:26 Nausea 122478039 Completed 07/04/2016 SADIA Gibbons [facility] 6 09:55:27 Joint pain 43705471 Completed 07/04/2016 Gogo good [facility] 6 10:26:48 Fatigue 92904797 Completed 07/04/2016 Gogoyuliet Emanuelalanna-Di michael null, [facility] 6 10:26:55 Depressi ve disorder 00965006 Completed 201607/06/2017 Gogo Donovan-Katerine michael null, [facility] 7 09:28:40 Major depressi on single episode, in partial remissio n 47614275 Completed 201710/19/2017 Gogoyuliet Donovan-Katerine michael null, [facility] 8 19:56:36 History of hepatiti s C 95553885194 101 Active 2017 Gogoyuliet Donovan-Katerine michael null, [facility] 8 19:56:32 Aortic valve stenosis 53583232 Active 2020 AVR done 07/15 Diandra Santamaria us null, [facility] 2 00:21:44 Bicuspid aortic valve 86759008 Active 2020 Gogoyuliet Donovan-Katerine michael null, [facility] 1 15:03:37 Aneurysm of ascendin g aorta 039709771 Active 2020 Gogoyuliet Donovan-Katerine michael null, [facility] 1 15:03:38 Suspecte d COVID-19 735938948 Completed 05/17/2021 Removal Reason: Problem added by user [email or web address] from the COVID-19 watch flag Amanda Jaems null, [facility] 1 11:47:48 Moderate aortic valve stenosis 159668955 Active 2021 Gogo Glading-Di michael null, [facility] 2 12:47:13 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 40342554 Active 2021 Diandra Santamaria us null, [facility] 2 14:44:32 History of aortic valve replacem ent 31019341533 00 Active 2021 Diandra Santamaria us null, [facility] 2 14:44:37 Gastriti s 9178259 Completed 202210/24/2024 SAMY SCHWAB MD [address], [place], [address] , [facility] 5 07:36:25 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 Procedures Surgical History Date Name Laterality Status Provider Name and Address Organization Details Recorded Time 03/12/20 23 Most Recent Mammogram completed Dariela Norris MA [facility] 12/24/2023 08:20:10 03/12/20 23 Mammogram screening completed Felicia Breaux [facility] 12/29/2023 16:08:54 01/03/20 23 Date of Last Colonoscopy completed Alexia Rojo [facility] 01/02/2023 11:22:15 01/03/20 23 Colonoscopy completed Violeta Tirado [facility] 01/02/2023 10:27:51 01/03/20 23 Endoscopic us exam esoph completed Violeta Tirado [facility] 01/02/2023 10:16:33 05/30/20 22 repair of aortic valve completed Violeta Tirado [facility] 06/03/2022 14:14:50 05/30/20 22 replacement of aortic valve completed Lorin Weiss [facility] 06/04/2022 11:23:26 12/30/19 18 Egd diagnostic brush wash completed Kinjal Gandhi [facility] 12/30/2017 11:16:56 07/09/20 16 Date of Last Pap Smear completed Isis Cooper [facility] 07/18/2016 13:52:52 11/22/18 72 Appendectomy completed Dariela Norris MA [facility] 01/16/2021 14:27:07 Dxa bone density diana vrt fx completed Farzana Mijares MA [facility] 07/06/2017 09:17:45 Imaging Results Imaging Date Name Status LastModified by Organiz ation Details LastModified Time 11/27/2022 exercise challenge test (PROC) completed [email or web address] Information not available 12/17/2022 16:06:08 03/12/2023 MAMMO, screening, digital, bilateral completed [email or web address] (Outpt Imaging) [address] [place], [address], 03/13/2023 15:20:34 04/10/2023 XR, chest, 2 view completed [facility] (Outpt Imaging) [address] [place], [address], 04/18/2023 18:57:28 04/10/2023 imaging/diagno stic result completed [facility] [address] [place], [address], 04/18/2023 18:58:57 06/23/2023 PFT, complete completed [facility] (Pulmonary Lab) [address] [place], [address], 06/28/2023 11:38:47 11/04/2023 CT chest ldct lung program completed [facility] (Outpt Imaging) [address], [place], [address], 11/04/2023 12:25:01 11/04/2023 LDCT, chest, for lung cancer screening completed [email or web address] [facility] [address], [place], [address], 11/04/2023 11:36:34 03/12/2023 MAMMO, screening, digital, bilateral completed [email or web address] Information not available 12/29/2023 16:09:02 Procedure Notes None recorded. Medical Equipment None Reported. Allergies Allergen ID Allergen Name Allergen Category Reaction Reaction Severity Criticality Documentation Date Start Date Code Code System Note Provider Name and Address Organization Details Recorded Time Substance with sulfonami de structure and antibacte rial mechanism of action (substanc e) medicatio n Not available Not available Not available 10/27/2014 34528 8003 SNOMED Tavo good [facility] 5 14:15:20 3818 aspirin medicatio n rash Not available Not available 03/07/20142012 1191 RxNorm SADIA Barrera [facility] 2 14:29:14 3819 Skelaxin medicatio n Not available Not available Not available 03/07/20142012 62123 5 RxNorm Farzana SADIA Rosario [facility] 7 09:10:44 3820 Zoloft medicatio n Not available Not available Not available 03/07/20142012 42279 RxNorm LIVER ENZYM ES WENT UP SADIA Barrera [facility] 2 14:29:16 Medications Name Sig Start Date Stop Date Status Note LastModified by Organization Details LastModified Time harvoni 90-400 mg tabs active Not Available Not Available Not Available hydroxyzi ne hcl 25 mg tabs active Not Available Not Available Not Available metoprolo l succinate er 50 mg tb24 active Not Available Not Available Not Available amoxicill in 500 mg capsule TAKE 4 CAPSULES BY MOUTH 1 HOUR PRIOR TO APPT active Not Available Not Available No t Available atorvasta tin 80 mg tablet TAKE 1 TABLET BY MOUTH EVERY DAY 10/25 completed no longer needed per cardiolo gist Not Available Not Available Not Available venlafaxi ne ER 37.5 mg capsule,e xtended release 24 hr DAILY 09/24 completed RECORDED 09/24/19 13 1:05PM BY DARIELA NORRIS, OFFICE VISIT; Not Available Not Available Not Available tizanidin e 2 mg tablet TAKE 2 TABLETS BY MOUTH EVERY 8 HOURS 10/25 completed Not Available Not Available Not Available BD Luer-Amy Syringe 3 mL 25 x 5/8 INJECT 1 SYRINGE DIRECTED ONCE A WEEK active Not Available Not Available No t Available trazodone 50 mg tablet Take 1 tablet as needed by oral route at bedtime for 90 days. active Not Available Not Available No t Available azithromy ale 250 mg tablet TAKE 2 TABLETS BY MOUTH TODAY, THEN TAKE 1 TABLET DAILY FOR 4 DAYS 06/18 completed Not Available Not Available Not Available fluconazo le 150 mg tablet Take 1 tablet every day by oral route for 1 day. 11/19 completed Not Available Not Available Not Available amiodaron e 200 mg tablet TAKE 1 TABLET BY MOUTH TWO TIMES A DAY 07/04 completed Not Available Not Available Not Available metoprolo l succinate ER 50 mg tablet,ex tended release 24 hr Take 1 tablet every day by oral route for 90 days. 12/18 completed Not Available Not Available Not Available hydrocodo ne 5 mg-acetam inophen 325 mg tablet active Not Available Not Available Not Available metoprolo l succinate ER 50 mg tablet,ex tended release Take 1 tablet every day by oral route. 07/17 completed Not Available Not Available Not Available prednison e 20 mg tablet TAKE 2 TABLETS BY MOUTH EVERY DAY FOR 5 DAYS 06/18 completed Not Available Not Available Not Available terconazo le 0.8 % vaginal cream active Not Available Not Available Not Available ciproflox acin 250 mg tablet Take 1 tablet twice a day by oral route for 3 days. 07/04 completed Not Available Not Available Not Available valacyclo vir 500 mg tablet Q 12 HOURS 01/02 completed RECORDED 01/03/20 11 5:10PM BY LUIS PÉREZ ON/CALIXTO DUM; Not Available Not Available Not Available aspirin 81 mg tablet,de layed release TAKE 1 TABLET BY MOUTH EVERY DAY 07/04 completed Not Available Not Available Not Available amoxicill in 500 mg tablet TAKE 4 TABLETS 1 HOUR BEFORE APPOINTM ENT active Not Available Not Available No t Available ondansetr on 8 mg disintegr ating tablet TAKE 1 TABLET BY MOUTH THREE TIMES A DAY NEEDED FOR VOMITING 07/04 completed Not Available Not Available Not Available nortripty line 25 mg capsule Take 1 capsule every day by oral route as directed for 30 days. 2014 active Not Available Not Available Not Avai lable amoxicill in 875 mg tablet TAKE 1 TABLET TWICE A DAY 12/18 completed Not Available Not Available Not Available triamcino lone acetonide 0.025 % topical cream APPLY TO AFFECTED AREA TWICE A DAY FOR 14 DAYS 07/04 completed Not Available Not Available Not Available cyanocoba sadaf (vit B-12) 1,000 mcg/mL injection solution INJECT 1 ML EVERY MONTH BY SUBCUTAN EOUS ROUTE FOR 90 DAYS. active ON HOLD Not Available Not Available No t Available triamcino lone acetonide 0.1 % topical ointment Apply 1 applicat ion twice a day by topical route as needed for 15 days. 09/03 completed Not Available Not Available Not Available omeprazol e 20 mg capsule,d elayed release Take 1 capsule twice a day by oral route for 30 days. 07/04 completed Not Available Not Available Not Available codeine 10 mg-guaife nesin 100 mg/5 mL oral liquid Take 10 mL every 6 hours by oral route as needed for 7 days. 07/18 completed Not Available Not Available Not Available furosemid e 20 mg tablet Take by oral route for 30 days. 07/04 completed Not Available Not Available Not Available gabapenti n 100 mg capsule THREE TIMES DAILY 11/09 completed RECORDED 11/10/19 12 4:14PM BY FARZANA ROBERT MA, OFFICE VISIT; Not Available Not Available Not Available metoprolo l succinate ER 25 mg tablet,ex tended release 24 hr Take 1 tablet every day by oral route as directed for 90 days. 2024 active Not Available Not Available Not Avai lable lorazepam 1 mg tablet QHS PRN INSOMNIA 11/09 completed RECORDED 11/10/19 12 4:13PM BY FARZANA ROBERT MA, OFFICE VISIT; Not Available Not Available Not Available albuterol sulfate HFA 90 mcg/actua tion aerosol inhaler INHALE 2 PUFFS INTO THE LUNGS EVERY 4 TO 6 HOURS NEEDED FOR 30 DAYS active Not Available Not Available No t Available sertralin e 50 mg tablet TAKE 1 TABLET BY MOUTH EVERY DAY 01/16 completed Not Available Not Available Not Available doxycycli ne hyclate 100 mg tablet Take 1 tablet twice a day by oral route for 14 days. 06/09 completed Not Available Not Available Not Available naproxen 500 mg tablet Take 1 tablet twice a day by oral route for 30 days. active Not Available Not Available No t Available amoxicill in 875 mg-potass ium clavulana te 125 mg tablet Take 1 tablet every 12 hours by oral route for 10 days. 12/31 completed Not Available Not Available Not Available amoxicill in 500 mg-potass ium clavulana te 125 mg tablet 11/03 completed Not Available Not Available Not Available Estrace 0.01% (0.1 mg/gram) vaginal cream 12/31 completed Not Available Not Available Not Available escitalop terry 10 mg tablet DAILY 2012 active RECORDED 07/15/20 13 1:03PM BY DARIELA NORRIS, OFFICE VISIT; Not Available Not Available Not Available nitrofura ntoin monohydra te/macroc rystals 100 mg capsule Take 1 capsule twice a day by oral route for 7 days. 07/06 completed Not Available Not Available Not Available varenicli ne tartrate 1 mg tablet TWO TIMES DAILY 09/21 completed RECORDED 09/21/19 09 12:50PM BY FARZANA ROBERT MA, OFFICE VISIT; Not Available Not Available Not Available Chantix Starting Month Bhanu 0.5 mg (11)-1 mg (42) tablets in dose pack TWO TIMES DAILY 10/10 completed RECORDED 10/19/19 08 9:08AM BY FUAD Lehman NP, MEDICATI ON AUTO-FLORENTINO CTIVATIO N; Not Available Not Available Not Available GaviLyte- N 420 gram oral solution 02/15 completed Not Available Not Available Not Available GaviLyte- G 236 gram-22.7 4 gram-6.74 gram-5.86 gram oral solution TAKE 8 OUNCE BY MOUTH DIRECTED 12/18 completed Not Available Not Available Not Available Anoro Ellipta 62.5 mcg-25 mcg/actua tion powder for inhalatio n INHALE ONE PUFF INTO THE LUNGS ONCE DAILY active Not Available Not Available No t Available Spiriva Respimat 1.25 mcg/actua tion solution for inhalatio n INHALE 2 PUFFS BY MOUTH EVERY DAY FOR 90 DAYS. 12/23 completed Not Available Not Available Not Available Yuvafem 10 mcg vaginal tablet Insert 1 tablet every week by vaginal route for 90 days. 07/06 completed Not Available Not Available Not Available aspirin 81 mg capsule Take 1 capsule every day by oral route as directed . 12/18 completed Not Available Not Available Not Available Paxlovid 300 mg (150 mg x 2)-100 mg tablets in a dose pack TAKE 2 TABLETS (NIRMATR LUANNE) AND TAKE 1 TABLET (RITONAV IR) BY MOUTH TWICE A DAY FOR 5 DAYS 06/18 completed Not Available Not Available Not Available Vitals Date Recorded Body height Body mass index (BMI) Body weight Oxygen saturation Oxygen saturation in Arterial blood by Pulse oximetry Heart rate Body temperature Systolic blood pressure Diastolic blood pressure Provider Name and Address Organization Details Last Updated DateTime 3 168.91 cm 24 kg/m2 26233.1 5 g 99 % 99 % 64 /min 98.1 [degF] 126 mm[Hg] 77 mm[Hg] Dariela Norris MA [facility] 3 14:19:05 Date Recorded Body height Body mass index (BMI) Body weight Heart rate Oxygen saturation Oxygen saturation in Arterial blood by Pulse oximetry Body temperature Systolic blood pressure Diastolic blood pressure Provider Name and Address Organization Details Last Updated DateTime 3 168.91 cm 23.3 kg/m2 10893.2 9 g 66 /min 100 % 100 % 98.2 [degF] 154 mm[Hg] 78 mm[Hg] Cindi James MA [facility] 3 13:01:46 Date Recorded Body height Body mass index (BMI) Body weight Oxygen saturation Oxygen saturation in Arterial blood by Pulse oximetry Heart rate Body temperature Systolic blood pressure Diastolic blood pressure Provider Name and Address Organization Details Last Updated DateTime 3 168.91 cm 23.5 kg/m2 44833.3 7 g 100 % 100 % 62 /min 98 [degF] 123 mm[Hg] 72 mm[Hg] Dariela Norris MA [facility] 3 08:17:06 Date Recorded Body height Body mass index (BMI) Body weight Oxygen saturation Oxygen saturation in Arterial blood by Pulse oximetry Heart rate Body temperature Systolic blood pressure Diastolic blood pressure Provider Name and Address Organization Details Last Updated DateTime 4 168.91 cm 23.1 kg/m2 01335.6 9 g 99 % 99 % 64 /min 97.7 [degF] 124 mm[Hg] 71 mm[Hg] Dariela Norris MA [facility] 4 08:17:38 Date Recorded Body height Body mass index (BMI) Body weight Heart rate Oxygen saturation Oxygen saturation in Arterial blood by Pulse oximetry Body temperature Systolic blood pressure Diastolic blood pressure Provider Name and Address Organization Details Last Updated DateTime 5 168.91 cm 21.9 kg/m2 47198.7 5 g 70 /min 98 % 98 % 98.2 [degF] 125 mm[Hg] 72 mm[Hg] Farzana hernandez MA [facility] 5 14:09:33 Social History Question Answer Notes LastModified by Organizat ion Details LastModified Time Tobacco Smoking Status Former Smoker SADIA Gibbons [facility] 07/04/2016 10:00:50 Do You Have An Advance Directive? Yes HCP Signed On 07/06/17 Information not available 07/04/2022 What Is Your Level Of Alcohol Consumption? None Quit In 1996 Information not available 07/06/2017 Animal Exposure? Yes Information not available 07/04/2022 Do You Wear A Helmet When Biking? Yes Information not available 07/04/2022 Is Blood Transfusion Acceptable In An Emergency? Yes [email or web address] Information not available 12/31/2016 What Is Your Level Of Caffeine Consumption? Moderate 1 Cup Of Coffee Daily; Occ Tea Information not available 07/06/2017 How Much Tobacco Do You Chew? None Information not available 12/20/2014 Are You Currently Employed? Yes Information not available 12/20/2014 What Type Of Diet Are You Following? REGULAR Information not available 12/20/2014 Which Illicit Or Recreational Drugs Have You Used? None Information not available 07/06/2017 Do You Or Have You Ever Used E-cigarettes Or Vape? 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 No Information not available 07/04/2022 When Did You Quit Smoking? 6-10yearssinc elastcigarett e [email or web address] Information not available 12/18/2022 How Many Days In The Past Year Have You Had A Heavy Drinking Consumption (4+ Female, 5+ Male)? 0 Information not available 12/20/2014 Are There Any Guns Present In Your Home? Yes Information not available 07/04/2022 What Is Your Home Situation? Other Information not available 07/04/2022 Legally Blind In One Or Both Eyes? No Information not available 07/04/2022 Live Alone Or With Others? With Others Boyfriend (Vasu) Information not available 07/04/2022 Do You Take Precautions To Prevent Distracted Driving? Yes [email or web address] Information not available 12/31/2016 How Often Do You Need To Have Someone Help You When You Read Instructions, Pamphlets, Or Other Written Material From Your Doctor Or Pharmacy? Never Information not available 07/06/2017 Have You Served In The ? No [email or web address] Information not available 07/04/2016 Have You Or Anyone In Your Household Had Any Of The Following Symptoms In The Last 14 Days: Sore Throat, Cough, Chills, Body Aches For Unknown Reasons, Shortness Of Breath For Unknown Reasons, Loss Of Smell, Loss Of Taste, Fever At Or Greater Than 100 Degrees Fahrenheit? No [email or web address] Information not available 01/16/2021 Are You Or Anyone In Your Household A Health Care Provider Or Emergency Responder? No [email or web address] Information not available 01/16/2021 To The Best Of Your Knowledge Have You Been In Close Proximity To Any Individual Who Tested Positive For COVID-19? No [email or web address] Information not available 01/16/2021 *AWV ONLY* Are You Presently Prescribed Opioid Medication By PCP Or Specialist? If YES -Provider Assess The Benefit For Other, Non-opioid Pain Therapies Instead, Even If The Patient Does Not Have OUD But Is Possibly At Risk. No [email or web address] Information not available 12/18/2022 Have You Recently Traveled To A COVID-19 High Risk Area Or Gathering In The Last 10 Days? No [email or web address] Information not available 01/16/2021 Marital Status Single Informatio n not available 07/04/2022 What Was The Date Of Your Most Recent Tobacco Screening? 10/25/2024 Information not available 10/25/2024 Total Number Of Stairs In Home 11 Information not available 07/04/2022 How Many Children Do You Have? 0 [email or web address] Information not available 01/16/2021 What Is Your Current Pack Years? 20-29packyear s Information not available 07/04/2022 Do You Use Protection During Sex? No Information not available 12/20/2014 Difficulty Reading? No Information not available 07/04/2022 What Is Your Relationship Status? Domestic Partner Information not available 07/04/2022 Seat Belts Used Routinely Yes Information not available 07/04/2022 Are You Sexually Active? Yes Information not available 12/20/2014 At What Age Did You Start Smoking Tobacco? 17 Quit At 56 Information not available 07/06/2017 Are You Passively Exposed To Smoke? No Information not available 07/06/2017 Do You Or Have You Ever Used Smokeless Tobacco? Never Used Smokeless Tobacco [email or web address] Information not available 01/16/2021 How Much Tobacco Do You Smoke? 1 PPD Information not available 01/16/2021 Do You Use Any Illicit Or Recreational Drugs? No Information not available 07/04/2022 Do You Use Sunscreen Routinely? Yes Information not available 12/20/2014 How Many Years Have You Smoked Tobacco? 39 [email or web address] Information not available 01/16/2021 Do You Or Have You Ever Used Any Other Forms Of Tobacco Or Nicotine? No Information not available 10/25/2024 Sex: Unknown Functional Status Question Answer Note LastModified by Organizat ion Details LastModified Time Do you have difficulty walking or climbing stairs? No Information not available 07/04/2022 [address]iculty [address] at night? No Information no t available 07/04/2022 Are you able to walk? YESWOREST [email or web address] Information not available 12/18/2022 Are you able to care for yourself? Yes Information not available 12/20/2014 Do you have difficulty dressing or bathing? No Information not available 07/04/2022 What is your exercise level? Occasional Information not available 12/20/2014 Mental Status Question Answer Note LastModified by Organization D etails LastModified Time Do you have difficulty concentrating, remembering or making decisions? No Information no t available 07/04/2022 Family History Relationship Description Onset Age of this Age Resolved Age Notes LastModified by Organization Details LastModified Time Mother Migraine Not available 12/20/2014 14:35:56 Father Heart disease 60 80 Not available 2014 14:35:56 Father Anemia 40 80 Not available 0 12/20/2014 14:35:56 Brother Depressive disorder 30 51 Not available 2014 14:35:56 Brother Alcohol abuse 20 Not available 01/16 14:25:55 Sister Migraine Not available 12/20/2014 14:35:56 Sister Disorder of thyroid gland 50 56 Not available 2014 14:35:56 Sister Chronic obstructive pulmonary disease [email or web address] Not available 12/18 14:22:34 Medical History Condition Response Gout N Other N Blood Diseases N Kidney Stones N Hyperthyroidism N Breast Cancer N Depression Y COPD N Lung Disease N Hypothyroidism N Defects or Inherited Disease N Anesthesia Complications N Headaches/Migraines N Anxiety Disorder N Varicose Veins N Obesity N Vision or Eye Problems N Arthritis N Head Injury/Concussion N Polyps N Infertility N Congenital Anomalies N Acid Reflux (GERD) N Cancer N Stroke N ADHD N Endometriosis N High Cholesterol N Liver Disease Y Fibromyalgia N Kidney Disease N Heart Problems N Ear or Hearing Problems N Hospitalizations N Thyroid Problems N GI Problems N Acne N Eating Disorder N Skin Problems N Anemia Y Constipation N Bladder Problems N Mental Illness N Ovarian Cancer N Diabetes N Blood Transfusions N Seizures/Epilepsy N Tuberculosis N AIDS/HIV N Congestive Heart Failure (CHF) N Eczema N Diverticulitis N Abuse/Domestic Violence N Asthma N Allergies N Reflux/GERD N Hepatitis Y Pulmonary Embolism N Hypertension N Chicken Pox N Autism Spectrum Disorder (ASD) N Osteoporosis N Gynecological History Statement/Question Response If Post Menopausal, Age at Menopause 51 Date of Last Colonoscopy 01/02/2023 Sexually Active? Y HPV Vaccine N Date of Last Pap Smear 07/09/2016 Sexual Problems? N Age at Menarche 12 Current Control Method None Most Recent Mammogram 03/12/2023 N Obstetrics History GPAL:G 0 P 0 0 0 0 Immunizations Vaccine Type Date Status Note Provider Nam e and Address Organization Details Recorded Time Influenza, high-dose, trivalent, PF 5 completed Not Available [facility] 06/18/2023 08:08:31 Influenza, split virus, quadrivalent, preservative 6 completed Dariela Norris MA [facility] 07/04/2016 10:00:28 Influenza, split virus, trivalent, preservative 7 completed Areli Aleman MA [facility] 07/04/2022 14:26:55 Influenza, split virus, quadrivalent, preservative 8 completed SADIA Gibbons, [facility] 11/03/2018 14:36:59 Influenza, split virus, quadrivalent, preservative 9 completed SADIA Gibbons, [facility] 06/09/2019 10:49:08 COVID-19, mRNA, LNP-S, PF, 30 mcg/0.3 mL dose 1 [facility] 09:50:59 COVID-19, mRNA, LNP-S, PF, 30 mcg/0.3 mL dose 1 [facility] 07/17/2021 09:51:00 Influenza, split virus, quadrivalent, preservative 1 completed SADIA Cao [facility] 07/17/2021 09:51:00 COVID-19, mRNA, LNP-S, PF, 30 mcg/0.3 mL dose 1 [facility] 07/17/2021 09:50:59 Influenza, high-dose, trivalent, PF 5 [facility] 07/17/2021 09:51:00 Influenza, split virus, quadrivalent, PF 2 completed SADIA Barrera [facility] 07/04/2022 14:26:54 zoster recombinant 2 completed SADIA Barrera, [facility] 07/04/2022 14:26:54 Tdap 1 [facility] 07/04/2022 14:26:55 zoster recombinant 3 completed SADIA Gibbons [facility] 12/18/2022 14:08:46 Pneumococcal conjugate PCV20, polysaccharide [id number] conjugate, adjuvant, PF 4 completed SADIA Gibbons, [facility] 12/24/2023 08:12:27 RSV, recombinant, protein subunit RSVpreF, adjuvant reconstituted, 0.5 mL, PF 4 completed SADIA Gordillo, [facility] 10/25/2024 14:10:04 Td (adult), 2 Lf tetanus toxoid, preservative free, adsorbed 7 completed Not Available [facility] 03/07/2014 13:43:52 Influenza, split virus, trivalent, preservative 0 completed Not Available [facility] 03/07/2014 13:43:52 Tdap 1 completed Not Available [facility] 03/07/2014 13:43:52 Influenza, split virus, trivalent, preservative 2 completed Not Available [facility] 03/07/2014 13:43:52 Influenza, split virus, trivalent, preservative 3 completed Not Available [facility] 03/07/2014 13:43:52 Past Encounters Encounter ID Performer Location Encounter Start Date Encounter Closed Date Diagnosis/Indication Diagnosis SNOMED-CT Code Diagnosis ICD10 Code Diagnosis Note [id number] [facility]Comm [facility]ce [id number] [facility] [place] [address] 11/11/2006 00:00:00 [id number] autoEComm erce [id number] [facility] [place] [address] 09/10/2007 00:00:00 [id number] autoEComm erce [address] [facility] [place] [address] 09/21/2008 00:00:00 [id number] autoEComm erce [address] [facility] [facility] [place] [address] 04/11/2010 00:00:00 [id number] autoEComm erce [address] [facility] [place] [address] 06/10/2010 00:00:00 [id number] autoEComm erce [address] [facility] [place], [place] [address] 12/25/2010 00:00:00 [id number] autoEComm erce [address] [facility] [place] [address] 02/05/2011 00:00:00 [id number] auto[facility]Comm erce [address] [facility] [place] [address] 06/12/2011 00:00:00 [id number] autoEComm erce [address] [facility] [place] [address] 11/10/2011 00:00:00 [id number] autoEComm erce [address] [facility] [place] [address] 01/02/2012 00:00:00 [id number] autoEComm erce [address] [facility] [place] [address] 09/24/2012 00:00:00 [id number] auto[facility]Comm erce [address] [facility] [place] [address] 01/26/2013 00:00:00 [id number] autoEComm erce [address] [facility] [place] [address] 06/01/2013 00:00:00 [id number] autoEComm erce [address] [facility] [place] [address] 07/15/2013 00:00:00 [id number] [facility] Main Office [facility] [address] [place], [place] [address] 10/27/2014 14:02:35 10/27/2014 14:51:19 [facility] [id number] [facility] Main Office [facility] [address] [place], [place] [address] 11/08/2014 10:14:23 11/08/2014 10:51:30 Major depressive disorder [id number] She would like to re-start nortriptyl ine as this worked for her in the past. It may take a full 4-6 weeks for medication to work, please continue to take med for the entire time, do not stop med abruptly, you may have feelings of SI in first 2 weeks of therapy, please call/ return/ go to ED should you have these sx. Patient verbalizes understand ing and agrees with plan. F/U in 6 weeks. Cautioned re: taking this med with liver disease, she is aware this may need to be changed if she starts treatment for Hep C and there is any interactio n or concern from her GI doctor. Viral hepatitis C 91401722 Being worked up by Dr. Batres for new Hep C treatment, not currently being treated but states her levels have been fine. Essential hypertension 27892241 Well controlled on meds, continue [id number] Thom Breaux MD Main Office [address] [facility] [address] [place] [address] 12/20/2014 14:32:45 12/20/2014 14:54:21 Major depressive disorder 683849701 Symptoms of anxiety, depression and insomnia have greatly improved on 25mg nortriptyl ine, she has not taken the trazodone at all due to not needing it. She is having some dry mouth and blurred vision from med but states not too bothersome and she can see with her glasses on. She would like to continue this med as prescribed . Will call/ return if she has worsening sx. Knows not to stop med abruptly, will need to wean if she wants to stop med. Viral hepatitis C 28754732 Being worked up by Dr. Batres for new Hep C treatment, Phu. This was not approved by her insurance and there is an appeal in process. This med does not interact with nortriptyl ine and has a very low side effect profile. Currently remains untreated, [id number] Gogo rodriguez Main Office [address] [facility] [address] [place] [address] 06/15/2015 09:49:33 06/15/2015 10:38:14 Adult health examination 249509409 Z00.00 all screening is utd, is walking, feels great Viral hepatitis C 883192 07 B19.20 on treatment nad feesl so much better, had hep B and hep A shots with [employer] at work, she will check with GI if she got the PCV vaccine and if so send over all her shot records form GI, if not ask DR Batres if she should get the PCV vaccine. 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 Ex-smoker 4985023 Z87.89 1 quit in 02/06 Skin lesion 71226267 L98 .9 [id number] [facility] [address] [facility] [address] [place] [address] 12/31/2016 09:41:06 12/31/2016 10:24:09 Essential hypertension 03322940 I10 well controleld continue meds Insomnia 719640913 G47.0 0 meds as needed Viral hepatitis C 447963 07 B19.20 pt completed tx and had great response, followed by DR Batres Nondependyuliet nt alcohol abuse in remission 563842149 F10.10 no drinking, doing great for years Anemia due to unknown mechanism 15021864 D64.9 chek labs to clarify longstandi ng anemia Hypercholesterolemia 136 32623 E78.2 check fasting [id number] Gogo rodriguez Main Office [address] [facility] [address] [place] [address] 07/06/2017 08:55:16 07/06/2017 09:53:31 Adult health examination 183956677 Z00.00 utd on mammo, pap and colonoscop y, pap next month with Dr Hughes who will be retiring, 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 Major depr ession single episode, in partial remission 50389274 F32.4 pt will discuss restarting low dose zoloft now that her Hep C is treated. Will get list of meds from Dr Batres Nondepende nt alcohol abuse in remission 0.11 not drinking, goes to AA occasional ly, will hit 20 years in Jul Viral hepatitis C 678617 B19.20 pt completed tx and had great response, followed by DR Batres Insomnia 723590897 G47.0 0 encouraged pt to use trazodone more regularly to get more sleep, she will [id number] Gogo rodriguez Main Office [address] [facility] [address] [place] [address] 09/03/2017 09:52:25 09/03/2017 10:37:18 Diarrhea 08618588 R19.7 2 weeks,gett ing a bit more formed, exposure to C dif at work, if loose movement send for labs below, is continues to firm up no need to send labs, return if any fever, pain, cramping or blood, pt aware Nondepende nt alcohol abuse in remission 851008158 F10.11 not drinking, goes to AA occasional ly, hit 20 years in Jul Viral hepatitis C 657335 B1.20 pt completed tx and had great response, followed by DR Batres, will check lfts in light of sertraline added last month, if elevated or diarrhea does not resolve tp to see Dr Batres Essential hypertension 92288633 I10 well controlled . Insomnia 809883290 G47.0 0 encouraged pt to use trazodone more regularly to get more sleep, she will, is sleeping better, using now nad then Major depr ession single episode, in partial remission 11166637 F32.4 pt is feeling better on sertraline with mood, may have GI SE but improving, continue med for now [id number] Gogo DonovanKaterine michael Main Office [address] [address] [place] [address] 10/19/2017 16:38:53 10/19/2017 17:00:20 Insomnia 375723028 G47.00 pt uses it now and then . it helps when she uses it Essential hypertension 27792832 I10 well controlled . continue meds Single portia or depressive episode, in full remission 178414819 F32.5 meds helping a lot, continue meds History of hepatitis C 3365592706 9101 Z86.19 treatment was successful , followed by GI [id number] [facility] [address] [facility] [address] [address] 02/15/2018 09:32:02 02/15/2018 10:08:03 Essential hypertension 07751087 I10 well controlled . continue meds Nondepende nt alcohol abuse in remission 806442115 F10.11 not drinking, goes to AA occasional ly History of hepatitis C 1268875210 9101 Z86.19 treatment was successful , followed by GI Single portia or depressive episode, in full remission 718175575 F32.5 meds helping a lot, continue meds, may increase dose for winter [id number] [facility] Main Office [address] [place] [address] 11/03/2018 14:19:23 11/03/2018 15:04:25 Adult health examination 514754103 Z00.00 utd on mammo, pap and colonoscop y, Essential hypertension 26411905 I10 well controlled . continue meds History of hepatitis C 9552638038 9101 Z86.19 treatment was successful , followed by GI Nondepende nt alcohol abuse in remission 115034163 F10.11 not drinking, goes to AA occasional ly Insomnia 160370750 G47.0 0 pt uses it now and then . it helps when she uses it Acute vaginitis 77299471 N76.0 tx , due to hx of abx for sinusitis Skin lesion 70938557 L98 .9 pt to setup derm appt [id number] Gogo EmanuelAbdiramhan michael Main Office [address] [facility] [address] [place] [address] 11/19/2018 13:53:38 11/19/2018 14:23:48 Acute sinusitis 63686894 J01.90 treat with 14 days of doxycyclin e, do sinus washing/fl ushing Cough 94834386 R05 from PND, pt with some blood in her sputum, advised to return for eval if blood does not cear up and stay resolved. [id number] Gogo EmanuelAbdirahman michael Main Office [address] [facility] [address] [place] [address] 06/09/2019 10:37:37 06/09/2019 11:26:10 Insomnia 346025014 G47.00 pt uses it now and then . it helps when she uses it Fatigue 11334711 R53.83 check labs [id number] Gogo EmanuelAbdirahman michael Main Office [address] [address] [place] [address] 07/06/2019 09:52:48 07/06/2019 10:35:53 Screening for malignant neoplasm of lung 895906765 Z87.891 Eligible patients must have >=30 pack years will set up for lung cancer screening, pt with 40 pack kim hx Pneumonia 521930516 J18. 9 exam with right upper lobe decreased breath sounds, will not get CXR since no change in tx, pt knows to return or go to ER/UC if sob, fever or feeling worse in any way Cough 47256627 R05 keeping pt up [id number] Gogo Dora michael Main Office [address] [facility] [address] [place] [address] 07/18/2019 16:23:12 07/19/2019 09:49:06 Pneumonia 377923742 J18.9 resolving, is off abx, keep with fluids and rest Single portia or depressive episode, in full remission 223396757 F32.5 sertraline really helping mood [id number] Gogo Dora michael Main Office [address] [facility] [address] [place] [address] 07/29/2019 10:30:21 07/29/2019 11:34:48 Acute sinusitis 05064044 J01.90 day 7 of illness, pt with an acute sinusitis after a recent pneumonia, not taking care of herself, work is short staffed and pt is working longer shifts, needs to be out of work, note given, barely recovered fromt he pneumonia now with sinusitis, start yogurt and probiotics . [id number] Gogo rodriguez Main Office [address] [facility] [address] [place] [address] 10/06/2019 13:43:53 10/06/2019 21:39:27 [id number] Gogo rodriguez Main Office [address] [facility] [address] [place] [address] 01/16/2021 14:18:18 01/16/2021 15:08:36 Adult health examination 091011906 Z00.00 utd on mammo, and colonoscop y, pt will se tup pap Essential hypertension 80564913 I10 well controlled . continue meds Screening for malignant neoplasm of cervix 644147756 Z12.4 pt to arrange Administra tion of viral vaccine 61071474 Z23 pt iwll get shingles vaccine sometime History of hepatitis C 1698467468 9101 Z86.19 treatment was successful , followed by GI Aortic valve stenosis 60 144991 I35.0 followed by Jo[facility] Bicuspid aortic valve 72 834835 Q23.1 Aneurysm o f ascending aorta 599270983 I71.2 no change in size on recent echo [id number] Gogo rodriguez Main Office [address] [facility] [address] [place] [address] 07/17/2021 09:38:51 07/17/2021 10:19:12 Essential hypertension 39056562 I10 a bit high today but pt checks at work and all in 120's check labs watch salts and keep an eye at work on BP Insomnia 522021729 G47.0 0 trazodone very helpful Hypercholesterolemia 136 74406 E78.2 check nonfasting [id number] Gogo rodriguez Main Office [address] [facility] [address] [place] [address] 12/30/2021 10:21:55 12/30/2021 12:55:00 [id number] Gogo Dora michael Main Office [address] [facility] [address] [place] [address] 06/04/2022 11:10:55 06/04/2022 13:30:54 [id number] Vesta Xie Main Office [address] [facility] [address] [place] [address] 07/04/2022 13:56:09 07/04/2022 15:06:45 History of aortic valve replacement 3721269948 100 Z95.4 doing well post surgery, seeing cardiology on thursday. Pt slowly getting energy and stamina back, will be attending cardiac rehab. Out of work for 12 weeks. Pt is hemdynamic ally stable, compliant with meds, healing as expected. Anemia due to unknown mechanism 62981423 D64.9 was anemic at discharge, check labs, not on iron at this time, Essential hypertension 82059078 I10 BP is controlled on present regimen, continue all meds at current dosages. Continue with low salt diet, exercise Aneurysm o f ascending aorta 935921727 I71.20 repaired at time of valve replacemen t [id number] Gogo Dora michael Main Office [address] [facility] [address] [place] [address] 12/18/2022 14:07:44 12/18/2022 15:08:51 Adult health examination 812887149 Z00.00 due for mammo, and colonoscop y is set for 266226 Aneurysm o f ascending aorta 414141540 I71.20 pt had repair when got new aortic valve Essential hypertension 98499948 I10 continue meds History of aortic valve replacement 0453875650 100 Z95.4 had bicuspid aortic valve done in 2021 History of hepatitis C 7656301683 9101 Z86.19 treatment was successful , followed by GI Hypercholesterolemia 136 13469 E78.2 on atorvastat in Screening for malignant neoplasm of breast 192082704 Z12.39 Dyspnea on exertion 6084 5006 R06.09 skilled nursing smoker, feels winded at times, would like pulmonary eval, pt will arrange [id number] Kareen Calhoun PA-C Main Office [address] [facility] [address] [place] [address] 04/10/2023 12:48:35 04/10/2023 13:24:50 Pneumonia 015260073 J18.9 Likely pneumonia , chest xray ordered. Begin abx as directed , prednisone pulse pack 40 mg for 5 days , continue Mucinex and also start rescue inhaler as directed. Rest , fluids. F/u as needed. Wheezing 85538541 R06.2 [id number] SAMY SCHWAB MD Main Office [address] [facility] [address] [place] [address] 06/18/2023 08:07:25 06/18/2023 08:32:57 Anemia due to unknown mechanism 57449291 D64.9 - last Hb was 9.2, with macrocytos is> anemia due to due vitamin b12 deficiency - will check levels as patient recently completed weekly injection of vitamin b12 Serum d[place] min B12 below reference range 234539277 R79.89 - noted by GI- will check for pernicious anemia- will continue vitamin b12 injections , monthly History of hepatitis C 6172912002 9101 Z86.19 - treatment was successful , followed by GI History of aortic valve replacement 1919804333 100 Z95.4 - s/p aortic valve replacemen t on 05/30/22 Essential hypertension 88072376 I10 - at goal- BP today is 123/72- metoprolol succinate ER 25mg Pt counselled on:-Dietar y Approaches to Stop Hypertensi on (DASH) is an eating plan rich in fruits, vegetables , whole grains, fish, poultry, nuts, legumes, and low-fat dairy. These foods are high in crain nutrients such as potassium, magnesium, calcium, fiber, and protein.-A dvised continued adherence to medication s and low salt diet - extensive counsellin g done regarding dietary habits.-En couraged regular aerobic exercise 30 min for 4-5 x week.-BP monitoring at home advised to bring log at every visit-Side -effects of high BP can cause Stroke, Heart attack and even d/w pt-D/w pt when to call 911 or reach out to Health care provider:> Think you are having a reaction to a medicine you are taking.>Riley ve headaches that keep coming back (recurring ).>Feel dizzy.>Hav e swelling in your ankles.>Riley ve trouble with your vision. Dyspnea on exertion 6001 5006 R06.09 - dyspnea could be coming from cardiac or pulmonary etiology> believe it may more pulmonary at this time as patient recently had cardiology work-u with was normal- patient performed an echo on 10/16 which showed not changed since 11/13> biscup aortic valve functionin g normally> LVEF normal- pt following cardiopulm onary rehab- ordered PFT testing to evaluate for COPD due to hx of smoking- pt also has hx of anemia which could be contributi ng to dyspnea Ex-smoker 7678764 Z87.89 1 - pt quit smoking at age 56- was smoking 1 ppd for 39 years- pack years= 39 pack years- low dose CT scan from 10/2022: Lung-rad 2 [id number] SAMY SCHWAB MD Main Office [address] [facility] [address] [facility] [place] [address] 12/24/2023 08:01:41 12/24/2023 08:40:04 Anemia due to unknown mechanism 82251344 D64.9 - pt is feeling very fatigued, has not had an injection in several months- slowly improving currently 11.4 (last Hb was 10.6, with macrocytos is)> anemia due to due vitamin b12 deficiency - will check levels as patient recently completed weekly injection of vitamin b12 Serum d[place] min B12 below reference range 505938458 R79.89 - noted by GI- will continue vitamin b12 injections , monthly- pt was advised to notify when she runs out- administer s injection herself Essential hypertension 64458767 I10 - at goal- BP today is 948432- metoprolol succinate ER 25mg Pt counselled on:-Dietar y Approaches to Stop Hypertensi on (DASH) is an eating plan rich in fruits, vegetables , whole grains, fish, poultry, nuts, legumes, and low-fat dairy. These foods are high in crain nutrients such as potassium, magnesium, calcium, fiber, and protein.-A dvised continued adherence to medication s and low salt diet - extensive counsellin g done regarding dietary habits.-En couraged regular aerobic exercise 30 min for 4-5 x week.-BP monitoring at home advised to bring log at every visit-Side -effects of high BP can cause Stroke, Heart attack and even d/w pt-D/w pt when to call 911 or reach out to Health care provider:> Think you are having a reaction to a medicine you are taking.>Riley ve headaches that keep coming back (recurring ).>Feel dizzy.>Hav e swelling in your ankles.>Riley ve trouble with your vision. History of hepatitis C 7945409694 9101 Z86.19 - treatment was successful , followed by GI History of aortic valve replacement 1429139232 100 Z95.4 - s/p aortic valve replacemen t on 05/30/22 Ex-smoker 1548381 Z87.89 1 - pt quit smoking at age 58- was smoking 1 ppd for 41 years- pack years= 41 pack years- low dose CT scan from 10/2022: Lung-rad 2 Adult heal th examination 358713675 Z00.00 Health Maintenanc e FemaleA) Patient was counseled on healthy diet, exercise and nutrition due to BMI of 23.1 B) ScreeningL ast Mammogram: start at age 50 stop at 75Date: 03/12/2023R esult: BIRADS-1Ne xt: 02/2024 Last Pap smear: start at age 21 to age 65Date: 07/14/2016 Results: positive HPVNext: DUE Last Colonoscop y: start at age 45-75Date: 01/02/2023R esult: colitis, internal hemorrhoid sNext: [address] scan:Date: 11/04/2023 esult: lung rad 2Next: 1 year Last DEXA scan:Date: due at 66Result: ? C) Vaccines:I nfluenza: refusedTdA P: 01/16/2021Z aneesh: 03/19/2022, 3PC V13: due at 81RYVL88: due at 74ABS31:PC V15:COVID: 08/28/2020, 09/18/2020, 06/02/2021 D) Routine blood work orderedE) Updated patient's history RTC in one year for annual exam or sooner if any acute complaints Fatigue 36413512 R53.83 Z00.00 Hyperlipidemia 08165521 E78.5 Z00.00 - at goal- c/w atorvastat in 80mg QD- had recent lipid panel on 09/2023, will import Screening for malignant neoplasm of cervix 808913845 Z12.4 - will perform for patient as her gynecologi st retired Pulmonary emphysema 8743 3001 J43.9 - due to smoking history- following with pulm- c/w Anaro QD- c/w albuterol as needed [id number] SAMY SCHWAB MD Main Office [address] [facility] [address] [facility] [place], [place] [address] 10/25/2024 13:50:19 10/25/2024 14:30:28 Anemia due to unknown mechanism 07074333 D64.9 - pt is feeling very fatigued, has not had an injection in several months- slowly improving currently 11.4 (last Hb was 10.6, with macrocytos is)> anemia due to due vitamin b12 deficiency Serum [place] min B12 below reference range 210624378 R79.89 - noted by GI- pt has not gotten an injection in several months- recent vitamin b12 level normal at 520- will recheck levels Essential hypertension 07654629 I10 - at goal- BP today is 125/72- metoprolol succinate ER 25mg Pt counselled on:-Dietar y Approaches to Stop Hypertensi on (DASH) is an eating plan rich in fruits, vegetables , whole grains, fish, poultry, nuts, legumes, and low-fat dairy. These foods are high in crain nutrients such as potassium, magnesium, calcium, fiber, and protein.-A dvised continued adherence to medication s and low salt diet - extensive counsellin g done regarding dietary habits.-En couraged regular aerobic exercise 30 min for 4-5 x week.-BP monitoring at home advised to bring log at every visit-Side -effects of high BP can cause Stroke, Heart attack and even d/w pt-D/w pt when to call 911 or reach out to Health care provider:> Think you are having a reaction to a medicine you are taking.>Riley ve headaches that keep coming back (recurring ).>Feel dizzy.>Hav e swelling in your ankles.>Riley ve trouble with your vision. History of aortic valve replacement 2731954110 100 Z95.4 - s/p aortic valve replacemen t on 05/30/22- please note that patient is no longer following [facility] cardiology , has been discharged on 10/2023 Pulmonary emphysema 8743 3001 J43.9 - due to smoking history- following with pulm- c/w Anaro QD- c/w albuterol as needed -> re-ordered as patient ran out> currently having an URI and worsening SOB therefore medication was refilled Ex-smoker 4771718 Z87.89 1 - pt quit smoking at age 58- was smoking 1 ppd for 41 years- pack years= 41 pack years- low dose CT scan from 10/2022: Lung-rad 2 Hyperlipidemia 97801418 E78.5 Z00.00 - at goal- c/w atorvastat in 80mg QD- ordered repeat levels Sampling o f vagina for Papanicolaou smear 789812414 Z01.419 Nicotine dependence 5629 4008 Z87.891 LDCT Lung Cancer Screening Program Annual Order Upper resp iratory infection 43194038 J06.9 - pt declined testing at this time- will continue with supportive treatment- pt provided with albuterol inhaler due to wheezing heard on exam- work note provided- Tylenol OTC, not to exceed package insert for pain or fever q4-6h advised prn. Counselled on not exceeding more than 3g/day. - Throat Lozenges otc prn for sore throat - saltwater gargle - adequate hydration enforced - saline sprays - humidifier use enforced. - Also advised can use a teaspoon honey for cough - isolation precaution discussed Health Concerns Section Related Observation LastModified by Organization Detai ls LastModified Time None Recorded Concern Status LastModified by Organization Details LastModified Time None Recorded Advance Directives Directive Y: HCP signed on 07/06/17 Payers Encounter Date Sequence Insurance Name Policy Number Policy Maldonado Covered Member ID Maldonado Member ID Guarantor Name 12/18/2022 1 [facility] [id number] Myrtle Breaux [id number] Myrtle Breaux 04/10/2023 1 [facility] [employer] [id number] Myrtle Breaux [id number] Myrtle Breaux 06/18/2023 1 [facility] [employer] [id number] Myrtle Breaux [id number] Myrtle Breaux 12/24/2023 1 [facility] [employer] [id number] Myrtle Breaux [id number] Myrtle Breaux 10/25/[address] [place] [address] [id number] Myrtle Breaux [id number] Myrtle Breaux Notes Date Note Type Note Provider Name and Address Organization Details Recorded Time 12/19/19 text/htm l Pt is here for a PE. Pt had aortic valve replaced and aortic aneurysm repaired in 05/2022. PT continues to be anemic, was diagnosed with hemolytic anemia years ago, continues to be anemic after surgery. SHe will have a repeat CBC with Dr Gaspar coming up. Gogo good, [facility] 12/18/2022 15:13:13 04/10/20 23 text/htm l 62 year old female c/o 1 week onset of dry cough, congestion , runny nose, fatigue. Pt. has wheezing , shortness of breath. NO h/o asthma/COPD, former smoker. NO fever, chills. NO prior use of inhaler. Tried Mucinex and Tylenol. Kareen Calhoun PA-C [address], [address], [facility] 04/10/2023 13:28:25 06/18/20 23 text/htm l Myrtle Breaux is a 63 year old F who presented to the clinic for follow-up on her chronic conditions. Patient today continues to complain of SOB and fatigue. Anemia: Pt has been following with GI and most recent blood work showed low Hb and borderline low vitamin B12. Patient has been taking a oral vitamin B12. Was previously on weekly injections for one month placed by GI. SAMY SCHWAB MD [address], [address], [facility] 06/21/2023 12:53:34 06/18/20 23 text/htm l Hypertension F/UReported bypatient.Associated Symptoms:no dizziness; no lightheadedness; no chest pain; no shortness of breath; no palpitations; no edema; no calf pain with exertion Lifestyle:limiting/avoiding salt;not exercising regularly Medications:taking medications as directed; no side effects from medicationdyspneaReported bypatient.Notes:Occurs only with exertion. Patient has trouble walking several blocks and walking up stairs. Will sleep with two pillows at night however this is not new. Patient contacted pulmonary office for scheduling however was not able to answer questions. Pt did have PFT testing in the past however cannot remember when. Pt does have an albuterol inhaler which she only uses when has an URI. SAMY SCHWAB MD [address], [address], [facility] 06/21/2023 12:53:34 12/24/19 24 text/htm l Myrtle Breaux is a 63 year old F who presented to the clinic her annual exam. Patient denies any emergency room visits or hospitalizations during this time. Complaints: fatigue Is not using ASA.OTC/Herbal supplements use: vitamin b12 injection (has not gotten it in several months) Gynecologic HistoryPatient's last menstrual period was around her late 40sNo spottingContraception: Menopause+ abnormal paps, it was repeated and it was normalDenies cysts, stds, fibroids Obstetric HistoryGravida: 0Para: 0AB: 0Complications: Drug use: neverEtoh use: never -used to abusetobacco use: former smoker, quit in 2018, started at 17, 1 pack a dayspf/derm: intermittent Dental: every 6 monthsEye: once a yearDiet: regularActivity: walking SAMY SCHWAB MD [address] [address], [place], [address], [facility] 12/24/2023 08:47:27 10/26/19 25 text/htm l Hypertension F/UReported bypatient.Associated Symptoms:no dizziness; no lightheadedness; no chest pain; no shortness of breath; no palpitations; no edema; no calf pain with exertion Lifestyle:limiting/avoiding salt;not exercising regularly Medications:taking medications as directed; no side effects from medicationUpper Respiratory SymptomsReported bypatient.Location:head Quality:congested Severity:mild Onset/Timing:sudden Context:no sick contacts; no foreign travel Associated Symptoms:no sputum production; no change in number of pillows needed to sleep at night; no sweats; no fever; no significant weight gain; no significant weight loss; no morning cough; no sore throat; no vomiting; no diarrhea; no rash; no nausea;shortness of breath;fatigueNotes:Started on 10/23/2024. Myrtle Breaux is a 63 year old F who presented to the clinic for follow-up on her chronic conditions and pap smear. Pt today is complaining of SOB and upper respiratory infection. Anemia: Pt has been following with GI and most recent blood work showed low Hb and borderline low vitamin B12. Patient has been taking a oral vitamin B12. Was previously on weekly injections for one month placed by GI. Gynecologic HistoryPatient's last menstrual period was around her late 40sNo spottingContraception: Menopause+ abnormal paps, it was repeated and it was normalDenies cysts, stds, fibroids Obstetric HistoryGravida: 0Para: 0AB: 0Complications: SAMY SCHWAB MD [address] [address], [place], [address], [facility] 10/25/2024 14:39:41 OBGyn Episode No OBEpisode recorded.
--- NOTE | 2024-11-22 08:20 | MHC.OFFVIS ---
Vital Signs 11/22/24 08:21 Height 5 ft 6.5 in Weight 142 lb 3.17 oz BMI 22.6 BP 132/76 Blood Pressure Location Rt brachial Position Sitting Pulse 54 Pulse Source Pulse Oximeter Pulse Oximetry (%) 99 Oxygen Delivery Method Room Air Intake Visit Reasons: emphysema Allergies sulfamethoxazole [From Bactrim] Allergy (Mild, Unverified 11/22/24 08:27) FLUSHING/FEVER trimethoprim [From Bactrim] Allergy (Mild, Unverified 11/22/24 08:27) FLUSHING/FEVER HPI Comments Details: The patient is a 64 year woman with a known history of bicuspid valve ultimately underwent a cardiac catheterization back in December 2021 and required an aortic valve replacement. Prior to the surgery the patient was complaining of shortness of breath specially with activity going up a flight of stairs or 6 slight incline. It is felt that mainly due to the aortic valve. However, after the valve was fixed she continued to have ongoing symptoms of dyspnea. The patient was placed on Spiriva. She did undergo pulmonary function studies at [facility] which are personally reviewed with her. The patient appears to have mild to moderate obstruction consistent with COPD and also has evidence of air trapping in a moderate diffusion impairment. She has chronic anemia in addition to having her surgery for her aortic valve. All these are contributing to her symptoms of dyspnea. She does have some wheezing on examination will go ahead and optimize her respiratory medications at this time. The patient will also benefit from pulmonary rehabilitation. She is working at this time. Therefore she can looking into underlying pulmonary programs. The patient will stop Spiriva I will start Anoro. She will continue this until she is evaluated in several months. If the patient has any issues prior to the next visit she will call for an earlier assessment. 12/21/2023 the patient is here for a pulmonary follow-up visit. Overall she has been doing well. Denies any shortness of breath or cough. She has been staying active walking regularly. The patient had been using the Anoro inhaler. He has been affecting beneficial. She has not had any exacerbations. The patient did have a CT scan of the chest on October 2023 [facility] which was personally by me. She does have stable pulmonary nodules. She has mild to moderate emphysema also noted. She does have the postoperative changes after aortic valve. Some calcifications of the coronary arteries but otherwise pretty stable. She is going to continue getting the lung cancer screening program CT scans. Otherwise will follow-up in 1 year's time. 11/22/2024 the patient is here for a pulmonary follow-up visit. Overall she is doing well. She does have dyspnea on exertion. Also has a hard time during the humid months. She has been on the Anoro that has been helpful. We did review her PFTs demonstrating [id number] obstruction consistent with COPD. She also had a CT scan back in October 2023 part of the lung cancer screening program to [facility] demonstrating stable changes. She does have also a aortic valve replacement along with a graft. She does have a slight ectatic looking ascending aorta right after the graft. Measuring 3.6 cm. The patient should be getting another CAT scan now that it has been about a year since her last CT scan to continue with the lung cancer screening. Along with that she is able to monitor closely her cardiovascular system. The patient does have some wheezing on exam. Will go ahead and add Flovent to her Anoro. She can not the Flovent specially during those hot humid months which is difficult for her to breathe. She can also add Flovent during any illness resulting in significant chest tightness and wheezing. She has any questions or concerns she can always call. Otherwise will follow-up in a year's time with PFTs. [facility] Medical History (Updated 12/21/23 @ 12:35 by Francisco Rojo MD) Pulmonary nodules Dyspnea COPD (chronic obstructive pulmonary disease) Social History Patient Tobacco Use Status: Former Tobacco user Tobacco use type: Cigarette Years Smoked: 42 Years Review of Systems Const Denies fever(s) Eyes Reports no additional complaints ENT Denies nasal congestion Card Denies chest pain and Reports dyspnea on exertion Resp Reports excessive phlegm production, Reports dyspnea on exertion and Reports wheezing GI Reports no additional complaints Musc Reports no additional complaints Allan/Lymph Denies lymphadenopathy Aller/Immun Reports wheezing Physical Exam Vital Signs: Last Vital Signs Pulse 54 11/22/24 08:21 BP 132/76 11/22/24 08:21 Pulse Ox 99 11/22/24 08:21 Oxygen Delivery Method Room Air 11/22/24 08:21 BMI result Body Mass Index 22.6 Const General: comfortable HEENT Head: Yes normocephalic Neck Neck: Yes supple Chest Chest palpation & inspection: normal inspection of the chest Resp Effort & Inspection: normal respiratory effort Auscultation: no wheezes and diminished lung sounds Cardio Heart sounds: S1 normal heart sound present and S2 normal heart sound present GI Palpation (GI): Soft to palpation Skin General skin exam: no rashes or lesions noted Extrem General: Yes no clubbing, cyanosis or edema Assessment & Plan Assessment & Plan (1) COPD (chronic obstructive pulmonary disease): Comment: mild to moderate FEV1 75% predicted Code(s): J44.9 - Chronic obstructive pulmonary disease, unspecified Category: Medical Qualifiers: COPD type: emphysema Emphysema type: centrilobular Qualified Code(s): J43.2 - Centrilobular emphysema (2) Dyspnea: Comment: multifactorial Code(s): R06.00 - Dyspnea, unspecified Category: Medical Qualifiers: Dyspnea type: dyspnea on exertion Qualified Code(s): R06.09 - Other forms of dyspnea (3) Pulmonary nodules: Code(s): R91.8 - Other nonspecific abnormal finding of lung field Category: Medical Plan continue Anoro start QVAR JENNIFER as needed on line pulmonary re[place] [facility] [place] nexr 10/2024 PFTs next year F/U 12 months Orders: Orders PFT pulmonary function test 11 Months J43.2 - Centrilobular emphysema Medications: New fluticasone propionate 110 mcg/actuation 1 puff inhalation Q12H 12 grams 2RF 30 days Coding Level of Care Code Est Pt Level 4 (97537) Diagnoses Centrilobular emphysema J43.2 COPD type: emphysema Emphysema type: centrilobular Dyspnea on exertion R06.09 Dyspnea type: dyspnea on exertion Pulmonary nodules R91.8 Time Spent (min) 16
[2024-11-22 08:21] VITALS: BP 132/76; PULSE 54; O2SAT 99; BMI 22.6
== END 2024-11-22 09:03 | disposition home or self-care (01) ==
PROVIDERS: PCP Internal Medicine; Visit Provider Hospitalist
DX: J43.2 Centrilobular emphysema (principal); R06.09 Other forms of dyspnea; R91.8 Other nonspecific abnormal finding of lung field
CPT/HCPCS: 99214